=== PATIENT | female | born 1975 | race Two or more races ===

== ENCOUNTER → 2017-12-04 11:03 | Outpatient (CLI) | payer OTHER, SELFPAY ==
[2017-12-04 11:23] LABS: Basophils % 0.2 % (0.1-2.0); Eosinophils # 0.1 K/mm3 (0.0-0.4); Eosinophils % 1.4 % (0.1-12.0); Hematocrit 41.8 % (37.0-47.0); Hemoglobin 13.5 g/dL (12.2-16.2); Lymphocytes # 1.5 K/mm3 (0.7-4.5); Lymphocytes % 20.1 K/mm3 (10-50); Mean Corpuscular HGB Conc 32.3 g/dL (31.8-35.4); Mean Corpuscular Hemoglobin 26.3 pg (27.0-31.2); Mean Corpuscular Volume 81.3 fl (81-99); Mean Platelet Volume 10.5 fl (7.4-10.4); Monocytes # 0.3 K/mm3 (0.1-1.0); Monocytes % 4.6 % (1.7-9.3); Neutrophils # 5.5 K/mm3 (1.8-7.8); Neutrophils % 73.7 % (37.0-80.0); Platelet Count 224 K/mm3 (142-424); Red Blood Count 5.14 M/mm3 (4.20-5.40); Red Cell Distribution Width 14.3 % (11.5-17.5); White Blood Count 7.4 K/mm3 (4.8-10.8)
[2017-12-04 11:40] LABS: Alanine Aminotransferase 95 U/L (12-78); Albumin Level 3.9 gm/dL (3.4-5.0); Albumin/Globulin Ratio 0.9 (1.1-1.8); Alkaline Phosphatase 139 U/L (46-116); Anion Gap 10.2 mEq/L (5-15); Aspartate Amino Transferase 79 U/L (15-37); Bilirubin,Total 0.5 mg/dL (0.2-1.0); Blood Urea Nitrogen 8 mg/dL (7-18); Calcium 8.8 mg/dL (8.5-10.1); Carbon Dioxide 28 mmol/L (21.0-32.0); Chloride 99 mmol/L (98-107); Estimated Glomerular Filt Rate 92 ml/min (>60); GFR (African American) 111 ML/MIN (>60); Globulin 4.4 gm/dl (1.3-3.2); Glucose 238 mg/dL (74-106); Potassium 4.2 mmoL/L (3.5-5.1); Sodium 133 mmol/L (136-145); Thyroid Stimulating Hormone 1.91 uIU/ml (0.358-3.740); Total Protein,Serum 8.3 gm/dL (6.4-8.2)
[2017-12-04 14:38] LABS: Hemoglobin A1C 8.5 % (0.0-7.0)
[2017-12-05 15:48] LABS: Vitamin B12 1007 pg/mL (232-1245); Vitamin D 25 Hydroxy 13.6 ng/mL (30.0-100.0)
== END ==
PROVIDERS: Visit Provider Nurse Practitioner Family
DX: R73.9 Hyperglycemia, unspecified (principal); R53.83 Other fatigue
CPT/HCPCS: 36415; 80053; 82607; 82652; 83036; 84443; 85025

== ENCOUNTER → 2017-12-25 09:59 | Outpatient (POV) | payer OTHER, SELFPAY | PROVIDERS: Family Provider Internal Medicine Adolescent Medicine; PCP Internal Medicine Adolescent Medicine; Visit Provider Otolaryngology | DX: Z00.00 Encounter for general adult medical examination without abnormal findings (principal) ==

== ENCOUNTER → 2020-01-28 07:59 | Outpatient (CLI) | payer BC, SELFPAY ==
--- NOTE | 2020-01-28 08:07 | US_ITS ---
PROCEDURE: US LIVER CLINICAL INDICATION: URINE DISCOLORATION,PANCYLOPENIA, COMPARISON: LIVER US LIVER (ABD LTD) from 01/25/2017 FINDINGS: PANCREAS: The body and head of the pancreas have an unremarkable sonographic appearance. The tail the pancreas is not well demonstrated and may be better evaluated with CT. LIVER: No focal liver lesions demonstrated. Homogeneous echogenicity. No intrahepatic biliary ductal dilatation evident. There is appropriate direction of blood flow within a non dilated portal vein RIGHT KIDNEY: No hydronephrosis. There is a focal area of increased echogenicity in the lower pole of the right kidney. No shadowing apparent. This could be due to an angio myelolipoma and may be confirmed with CT without contrast. GALLBLADDER: No gallstones, gallbladder wall thickening, pericholecystic fluid, or biliary dilatation. IMPRESSION: 1. No gallstones. Unremarkable appearing liver. 2. Hyperechoic focus in the lower pole of the right kidney which could be due to an angio myelolipoma and may be confirmed with unenhanced CT of the kidneys. Dictated by: Tim Guevara MD 01/28/2020 11:33 Electronically signed by Tim Guevara MD in [place] 01/28/2020 11:33
== END ==
PROVIDERS: PCP Internal Medicine Adolescent Medicine; Visit Provider Internal Medicine Adolescent Medicine
DX: R39.89 Other symptoms and signs involving the genitourinary system (principal); E66.01 Morbid (severe) obesity due to excess calories; D61.818 Other pancytopenia
CPT/HCPCS: 76705

== ENCOUNTER → 2021-05-24 19:38 | Outpatient (CLI) | payer BC, SELFPAY | PROVIDERS: Visit Provider Nurse Practitioner Family | DX: Z20.822 Contact with and (suspected) exposure to COVID-19 (principal) | CPT/HCPCS: C9803; U0003; U0005 ==

== ENCOUNTER 2021-07-17 00:36 | Emergency (ER) | payer BC, SELFPAY ==
[2021-07-17 00:37] VITALS: BP 132/55; PULSE 88; RESP 16; TEMP 36.4; O2SAT 99; BMI 46.8
[2021-07-17 00:55] VITALS: BMI 46.8
--- NOTE | 2021-07-17 00:56 | CT_ITS ---
PROCEDURE INFORMATION: Exam: CT Abdomen And Pelvis With Contrast Exam date and time: 07/17/2021 12:56 AM Age: 45 years old Clinical indication: Abdominal tenderness; Additional info: Llq pain TECHNIQUE: Imaging protocol: Computed tomography of the abdomen and pelvis with contrast. Radiation optimization: All CT scans at this facility use at least one of these dose optimization techniques: automated exposure control; mA and/or kV adjustment per patient size (includes targeted exams where dose is matched to clinical indication); or iterative reconstruction. Contrast material: ISOVUE; Contrast volume: 75 ml; Contrast route: IV; COMPARISON: LIVER US LIVER (ABD LTD) 01/25/2017 9:20 AM FINDINGS: Lungs: No mass/infiltrate at either lung base. No pleural effusion. Liver: The liver is normal in size and attenuation. No intrahepatic biliary dilitation. Gallbladder and bile ducts: Normal. No calcified stones. No ductal dilation. Gallbladder wall thickness is normal. Pancreas: Normal. No ductal dilation. Spleen: Normal. No splenomegaly. Benign internal granulomatous calcifications noted. Adrenal glands: Normal. No mass. Kidneys and ureters: Normal. No hydronephrosis. Stomach and bowel: There is diverticulosis of the colon. No obstruction. No mucosal thickening. Small bowel mesentery is normal. Appendix: Unremarkable. Intraperitoneal space: Unremarkable. No free air. No significant fluid collection. Vasculature: Unremarkable. No abdominal aortic aneurysm. There are calcified phleboliths within the pelvis. Lymph nodes: Unremarkable. No enlarged lymph nodes. Urinary bladder: Unremarkable as visualized. Reproductive: Unremarkable as visualized. Bones/joints: Unremarkable. No acute fracture. Soft tissues: There is a moderate umbilical hernia which contains fat of the greater omentum. IMPRESSION: 1. There is a moderate umbilical hernia which contains fat of the greater omentum. 2. No evidence of acute process within the abdomen or pelvis.
[2021-07-17 01:00] VITALS: BP 114/66; PULSE 97; RESP 16; TEMP 36.6; O2SAT 98
[2021-07-17 01:04] LABS: Basophils # 0.1 K/mm3 (0-0.2); Basophils % 0.8 % (0.1-2.0); Eosinophils # 0.1 K/mm3 (0.0-0.4); Eosinophils % 1.2 % (0.1-12.0); Hematocrit 36.3 % (37.0-47.0); Hemoglobin 11.3 g/dL (12.2-16.2); Lymphocytes # 2.8 K/mm3 (0.7-4.5); Mean Corpuscular HGB Conc 31.2 g/dL (31.8-35.4); Mean Corpuscular Hemoglobin 24.3 pg (27.0-31.2); Mean Corpuscular Volume 77.9 fl (81-99); Mean Platelet Volume 9.1 fl (7.4-10.4); Monocytes # 0.5 K/mm3 (0.1-1.0); Monocytes % 4.5 % (1.7-9.3); Neutrophils # 7.2 K/mm3 (1.8-7.8); Neutrophils % 67.6 % (37.0-80.0); Platelet Count 136 K/mm3 (142-424); Red Blood Count 4.66 M/mm3 (4.20-5.40); Red Cell Distribution Width 16.2 % (11.5-17.5); White Blood Count 10.7 K/mm3 (4.8-10.8)
[2021-07-17 01:06] LABS: Lipase 128 U/L (23-300)
[2021-07-17 01:11] LABS: Appearance,Urine CLEAR (Clear); Bilirubin,Urine Negative (Negative); Blood, Urine Negative (Negative); Color,Urine YELLOW (Yellow); Glucose,Urine (UA) Negative (Negative); Ketones,Urine Negative (Negative); Leukocyte Esterase,Urine Negative (Negative); Nitrate,Urine Negative (Negative); Protein,Urine Negative (Negative); Specific Gravity, Urine <= 1.005 (1.005-1.030); Urobilinogen,Urine 0.2 EU/dl (0.2)
[2021-07-17 01:16] LABS: Alanine Aminotransferase 66 U/L (12-78); Albumin Level 4.1 g/dl (3.5-5.0); Albumin/Globulin Ratio 1.2 (1.1-1.8); Alkaline Phosphatase 170 U/L (38-126); Aspartate Amino Transferase 80 U/L (14-36); Bilirubin,Total 0.2 mg/dl (0.2-1.3); Blood Urea Nitrogen 7 mg/dl (7-17); Calcium 8.5 mg/dl (8.4-10.2); Carbon Dioxide 24 mmol/L (22.0-30.0); Chloride 100 mmol/L (98-107); Creatinine Clearance Estimated 102 mL/min (50-200); Estimated Glomerular Filt Rate 133 ml/min (>60); GFR (African American) 161 ML/MIN (>60); Globulin 3.3 g/dL (1.3-3.2); Glucose 79 mg/dl (74-100); Sodium 136 mmol/L (136-145); Total Protein,Serum 7.4 g/dl (6.3-8.2)
--- NOTE | 2021-07-17 01:16 | HMH.EDNVD ---
ED Disposition Clinical Impression: Abdominal pain Qualifiers: Abdominal location: right upper quadrant Qualified Code(s): R10.11 - Right upper quadrant pain Disposition: Home, Self-Care Condition on Discharge: Good Instructions: DI for Nausea -- Adult Additional Instructions: see pcp for follow up Referrals: Ethan Mercado MD [Primary Care Provider] - - Critical Care Critical Care Time: No Attestation: On 07/17/21, the high probability of a clinically significant, sudden or life threatening deterioration of the following system(s) required my full and direct attention, intervention and personal management. The time I documented below is in addition to time spent performing reported procedures but includes the following listed in this critical care notation. Medical Decision Making - Medical Records Medical records reviewed: Yes: I reviewed the patient's medical records. - Matthew Inquiry Pt receiving controlled substance: No Vital Signs: 07/17/21 00:37 07/17/21 01:00 EST Temperature 97.6 F 97.8 F Temperature Source Oral Oral Pulse Rate 97 H Pulse Rate [Left] 88 Respiratory Rate 16 16 Blood Pressure 114/66 Blood Pressure [Right Arm] 132/55 L Blood Pressure Mean [Right Arm] 80 02 Sat by Pulse Oximetry 99 98 Oxygen Delivery Method Room Air - Lab Data Lab results reviewed: Yes: I reviewed the patient's lab results. Lab Results 07/17/21 00:56: Urine Color Yellow, Urine Appearance Clear, Urine pH 7.0, Ur Specific [place] <= 1.005, Urine Protein Negative, Urine Glucose (UA) Negative, Urine Ketones Negative, Urine Blood Negative, Urine Nitrate Negative, Urine Bilirubin Negative, Urine Urobilinogen 0.2, Ur Leukocyte Esterase Negative, Urine WBC Occasional, Ur Squamous Epith Cells 5-10 07/17/21 00:56: Lipase 128 07/17/21 00:58: WBC 10.7, RBC 4.66, Hgb 11.3 L, Hct 36.3 L, MCV 77.9 L, MCH 24.3 L, MCHC 31.2 L, RDW 16.2, Plt Count 136 L, MPV 9.1, Neut % (Auto) 67.6, Lymph % (Auto) 26.0, [place] % (Auto) 4.5, Eos % (Auto) 1.2, Baso % (Auto) 0.8, Neut # (Auto) 7.2, Lymph # (Auto) 2.8, [place] # (Auto) 0.5, Eos # (Auto) 0.1, Baso # (Auto) 0.1, ESR 49 H 07/17/21 00:58: Sodium 136, Potassium 3.0 L, Chloride 100, Carbon Dioxide 24, Anion Gap 15.0, BUN 7, Creatinine 0.50 L, Estimated Creat Clear 102, Estimated GFR 133, Est GFR ( Amer) 161, Glucose 79, Calcium 8.5, Total Bilirubin 0.2, AST 80 H, ALT 66, Alkaline Phosphatase 170 H, C-Reactive Protein 21.5 H, Total Protein 7.4, Albumin 4.1, Globulin 3.3 H, Albumin/Globulin Ratio 1.2, Procalcitonin 0.068 07/17/21 00:58: Serum HCG, Qual Negative Result diagrams: 07/17/21 00:58 07/17/21 00:58 Orders (Tests/Meds): ED MEDICATIONS Generic Name Dose Route Start Last Admin Trade Name Freq PRN Reason Stop Dose Admin Sodium Chloride 1,000 mls @ 999 mls/hr 07/17/21 01:00 EST 07/17/21 01:04 EST Sod Chlor 0.9% 1000ml Bag IV 07/17/21 02:00 999 mls/hr .[id number] CAROL Administration Discontinued Medications Generic Name Dose Route Start Last Admin Trade Name Freq PRN Reason Stop Dose Admin Iopamidol 75 ml 07/17/21 01:49 EST 07/17/21 01:50 EDT Iopamidol-370 (76%);100ml Bottle IV 07/17/21 01:50 EST 75 ml ONCE ONE Administration Ketorolac Tromethamine 30 mg 07/17/21 00:57 07/17/21 01:05 EDT Ketorolac 30mg/Ml Vial IV 07/17/21 00:58 30 mg ONCE ONE Administration Ondansetron HCl 4 mg 07/17/21 00:57 07/17/21 01:05 EDT Ondansetron 4mg/2ml Vial IV 07/17/21 00:58 4 mg ONCE ONE Administration Sodium Chloride 10 ml 07/17/21 01:49 EST 07/17/21 01:50 EDT Sodium Chloride 0.9% 10ml Syr (Rad Only) IV 07/17/21 01:50 EST 10 ml ONCE ONE Administration ORDERS Category Date Time Status Rapid PCR Covid and Flu A/B Stat Lab 07/17/21 00:15 Received - CT Data CT Scan: Abdomen, Pelvis Time Received: 01:[address] Reviewed: Yes: I have viewed the radiologist's interpretation Preliminary Findings: Abnormal (see report ) Medical
[2021-07-17 01:17] LABS: HCG Qualitative, Serum Negative (Negative)
[2021-07-17 01:21] LABS: C-Reactive Protein 21.5 mg/L (0-4)
[2021-07-17 01:23] LABS: Microscopic, Urine URINE MICROSCOPIC (MICROSCOPIC); WBC,Urine Occasional #/hpf (0-3)
[2021-07-17 01:28] LABS: Erythrocyte Sedimentation Rate 49 mm/hr (0-20)
[2021-07-17 01:35] LABS: Procalcitonin 0.068 ng/mL (0.0-2.0)
[2021-07-17 01:50] VITALS: BP 110/58; PULSE 71; RESP 18; TEMP 36.9; O2SAT 96
[2021-07-17 02:01] LABS: Coronavirus 19, PCR Not Detected (NotDetected); Influenza A, PCR Not Detected (NotDetected); Influenza B, PCR Not Detected (NotDetected)
== END 2021-07-17 01:55 | disposition home or self-care (01) ==
PROVIDERS: Emergency Provider Emergency Medicine; PCP Internal Medicine Adolescent Medicine
DX: R10.11 Right upper quadrant pain (principal); R11.2 Nausea with vomiting, unspecified; Z20.822 Contact with and (suspected) exposure to COVID-19
CPT/HCPCS: 74177; 80053; 81001; 83690; 84145; 84703; 85025; 85651; 86140; 96365; 96375; 99283; C9803; J2405; Q9967; U0003; U0005

== ENCOUNTER → 2021-07-21 09:38 | Outpatient (CLI) | payer BC, SELFPAY ==
--- NOTE | 2021-07-21 09:40 | US_ITS ---
PROCEDURE: US GALLBLADDER CLINICAL INDICATION: RUQ PAIN COMPARISON: CT CT ABDOMEN PELVIS W CON from 07/17/2021 FINDINGS: Pancreas: Unremarkable/Not well seen Liver: Unremarkable. There is appropriate direction of blood flow within a non dilated portal vein. Right kidney: There is a small hyperechoic focus involving the right renal cortex lower pole at approximately 13 mm. This is of uncertain clinical significance. Review of the CT scan did not demonstrate any angio myelolipoma is which may cause a hyperechoic lesion possibly related to artifact from an area of septation of the kidney with invaginated fat. Follow-up suggested to confirm stability. Gallbladder: No stones are evident. There is no gallbladder wall thickening. Common duct is normal in diameter. IMPRESSION: No acute finding. Small hyperechoic area in the lower pole of the right kidney possibly related to artifact. Recommend six-month sonographic follow-up to confirm stability Dictated by: Tim Guevara MD 07/21/2021 15:36 Tim Guevara MD in [place] 07/21/2021 15:36
== END ==
PROVIDERS: PCP Internal Medicine Adolescent Medicine; Visit Provider Nurse Practitioner Family
DX: R10.11 Right upper quadrant pain (principal)
CPT/HCPCS: 76705

== ENCOUNTER → 2022-05-13 09:44 | Outpatient (CLI) | payer OTHER, SELFPAY ==
[2022-05-13 10:09] LABS: Basophils % 0.5 % (0.1-2.0); Eosinophils # 0.1 K/mm3 (0.0-0.4); Eosinophils % 1.3 % (0.1-12.0); Hematocrit 37.3 % (37.0-47.0); Hemoglobin 11.7 g/dL (12.2-16.2); Lymphocytes # 1.5 K/mm3 (0.7-4.5); Lymphocytes % 25.7 % (10-50); Mean Corpuscular HGB Conc 31.5 g/dL (31.8-35.4); Mean Corpuscular Hemoglobin 24.7 pg (27.0-31.2); Mean Corpuscular Volume 78.6 fl (81-99); Monocytes # 0.2 K/mm3 (0.1-1.0); Monocytes % 4.2 % (1.7-9.3); Neutrophils # 3.9 K/mm3 (1.8-7.8); Neutrophils % 68.3 % (37.0-80.0); Platelet Count 165 K/mm3 (142-424); Red Blood Count 4.74 M/mm3 (4.20-5.40); Red Cell Distribution Width 15.7 % (11.5-17.5); White Blood Count 5.8 K/mm3 (4.8-10.8)
[2022-05-13 10:45] LABS: Alanine Aminotransferase 77 U/L (12-78); Albumin Level 3.7 g/dl (3.5-5.0); Albumin/Globulin Ratio 1.2 (1.1-1.8); Alkaline Phosphatase 206 U/L (38-126); Anion Gap 9.9 mEq/L (5-15); Aspartate Amino Transferase 101 U/L (14-36); Blood Urea Nitrogen 13 mg/dl (7-17); Calcium 8.8 mg/dl (8.4-10.2); Carbon Dioxide 26 mmol/L (22.0-30.0); Chloride 106 mmol/L (98-107); Estimated Glomerular Filt Rate 108 ml/min (>60); GFR (African American) 130 ML/MIN (>60); Globulin 3.1 g/dL (1.3-3.2); Glucose 119 mg/dl (74-100); Potassium 4.9 mmoL/L (3.5-5.1); Sodium 137 mmol/L (136-145); Total Protein,Serum 6.8 g/dl (6.3-8.2)
[2022-05-13 10:47] LABS: Bilirubin,Total < 0.1 mg/dl (0.2-1.3)
[2022-05-13 11:13] LABS: Hemoglobin A1C 7.9 % (4.0-6.0)
[2022-05-13 11:17] LABS: Thyroid Stimulating Hormone 1.15 uIU/mL (0.465-4.68)
== END ==
PROVIDERS: PCP Internal Medicine Adolescent Medicine; Visit Provider Internal Medicine Adolescent Medicine
DX: E11.9 Type 2 diabetes mellitus without complications (principal); E03.9 Hypothyroidism, unspecified
CPT/HCPCS: 36415; 80053; 83036; 84443; 85025

== ENCOUNTER 2022-07-14 21:54 | Emergency (ER) | payer OTHER, SELFPAY ==
[2022-07-14 21:54] VITALS: BP 129/77; PULSE 78; RESP 19; TEMP 36.7; O2SAT 98; BMI 37.8
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
[2022-07-14 23:44] VITALS: BP 137/68; PULSE 79; O2SAT 99
[2022-07-15 00:01] VITALS: BP 134/79; PULSE 79; O2SAT 98
--- NOTE | 2022-07-15 00:22 | PC.NURSE ---
pt requested something for the pain . notified
[2022-07-15 00:30] VITALS: BP 133/82; PULSE 74; O2SAT 97
--- NOTE | 2022-07-15 01:10 | HMH.EDGENADL ---
Discharge Plan Disposition Patient Disposition: Home, Self-Care Condition: Good Chief Complaint: Headache Prescriptions Prescriptions: No Action meloxicam 15 mg tablet 15 mg PO DAILY Label Comments: TAKE 1 TABLET BY MOUTH ONCE DAILY levothyroxine 50 mcg tablet 50 mcg PO DAILY Label Comments: TAKE 1 TABLET BY MOUTH ONCE DAILY trazodone 150 mg tablet 150 mg PO HS Label Comments: TAKE 1 TABLET BY MOUTH ONCE DAILY AT BEDTIME metformin 1,000 mg tablet 1,000 mg PO BID Label Comments: TAKE 1 TABLET BY MOUTH TWICE DAILY lisinopril 10 mg tablet 10 mg PO DAILY Label Comments: TAKE 1 TABLET BY MOUTH ONCE DAILY omeprazole 20 mg capsule,delayed release(DR/EC) 20 mg PO DAILY Label Comments: TAKE 1 CAPSULE BY MOUTH ONCE DAILY norethindrone ac-eth estradiol [Microgestin 09/29 ()] 1-20 mg-mcg tablet 1 tab PO DAILY Label Comments: TAKE 1 TABLET BY MOUTH ONCE DAILY propranolol 20 mg tablet 20 mg PO BID Label Comments: TAKE 1 TABLET BY MOUTH TWICE DAILY ferrous gluconate 324 mg (37.5 mg iron) tablet 324 mg PO DAILY Label Comments: TAKE 1 TABLET BY MOUTH ONCE DAILY Jardiance 25 mg tablet 25 mg PO DAILY Label Comments: TAKE 1 TABLET BY MOUTH ONCE DAILY IN THE MORNING Soliqua 100/33 100 unit-33 mcg/mL insulin pen 60 unit SQ HS Label Comments: INJECT 60 UNITS SUBCUTANEOUSLY IN THE MORNING Referrals Follow up/Referrals: Ethan Mercado MD [Primary Care Provider] - See instructions Activity Restrictions/Add. Instructions Additional Instructions/Restrictions: Home medication as directed. PCP follow-up on Sunday. Return to the emergency department for worsening Clinical Impressions Clinical Impression: Headache Instructions Patient Instructions: DI for Headache Discharge ED Provider: Jamie Fregoso General Adult [facility] General Chief complaint: Headache Stated complaint: severe h/a Time Seen by Provider: 07/14/22 23:17 Mode of Arrival: Family Vehicle Source of Information: Patient Limitations: No Limitations Description of Symptoms (Recalled from ER Triage Doc. by RN): Pt c/o R sided headache that has been present for at least 3 days. She was seen at her PCP office today and they prescribed her a nasal spray and stated she had congestion back there but pt denies sinus or chest congestion. Pt also report dizziness, nausea, and chills. She is unable to take Tylenol d/t fatty liver dz, but has been taking advil, ibuprofen, and sinus pressure OTC meds withuot relief. She also reported her BP has been elevated. History of Present Illness HPI narrative: 46yo F presents to the emergency department for 3 days of headache. Pain is right-sided. Reports a history of migraines. Complains of pain in her right ear, right jaw. Reports blurry vision. States she did not take her migraine medicine because she does not believe it is a migraine. Has been taking ibuprofen and and Aleve. Related Data Home Medications Medication Instructions Recorded Confirmed empagliflozin 25 mg tablet 25 mg PO DAILY Diabetes 07/14/22 07/14/22 (Jardiance) ferrous gluconate 324 mg (37.5 mg 324 mg PO DAILY Supplement 07/14/22 07/14/22 iron) tablet insulin glargine 100 60 unit SQ HS Diabetes 07/14/22 07/14/22 unit-lixisenatide 33 mcg/mL subcutaneous pen (Soliqua 100/33) levothyroxine 50 mcg tablet 50 mcg PO DAILY thyroid 07/14/22 07/14/22 lisinopril 10 mg tablet 10 mg PO DAILY High blood pressure 07/14/22 07/14/22 meloxicam 15 mg tablet 15 mg PO DAILY artritis 07/14/22 07/14/22 metformin 1,000 mg tablet 1,000 mg PO BID Diabetes 07/14/22 07/14/22 norethindrone acetate 1 mg-ethinyl 1 tab PO DAILY Supplement 07/14/22 07/14/22 estradiol 20 mcg tablet (Microgestin) omeprazole 20 mg capsule,delayed 20 mg PO DAILY GERD 07/14/22 07/14/22 release propranolol 20 mg tablet 20 mg PO BID High blood pressure
[2022-07-15 01:15] VITALS: BP 133/82; PULSE 77; RESP 16; TEMP 36.7; O2SAT 97
== END 2022-07-15 01:19 | disposition home or self-care (01) ==
PROVIDERS: Emergency Provider Family Medicine; PCP Internal Medicine Adolescent Medicine
DX: R51.9 Headache, unspecified (principal); Z79.84 Long term (current) use of oral hypoglycemic drugs; Z79.4 Long term (current) use of insulin; Z79.899 Other long term (current) drug therapy
CPT/HCPCS: 70450; 96372; 99284

== ENCOUNTER → 2022-12-22 10:14 | Outpatient (CLI) | payer OTHER, SELFPAY ==
--- NOTE | 2022-12-22 10:30 | US_ITS ---
FINAL REPORT CLINICAL HISTORY: PAIN RUQ COMPARISON: CT dated 07/17/2021 FINDINGS: RIGHT UPPER QUADRANT ULTRASOUND Sonographic images of the right upper quadrant were obtained. The pancreas is partially obscured.The liver has an unremarkable appearance.The gallbladder appears normal without evidence of gallstones.The common duct is normal measuring 3 mm. There is a 12 mm echogenic focus in the lower pole of the right kidney, may represent angiomyolipoma. IMPRESSION: Focus in the right kidney which may represent angiomyolipoma. If indicated, renal mass protocol CT may be helpful. Reviewed, Interpreted and Dictated by Roshan Blanchard III, MD Transcribed by Abbey Ramos Authenticated and [facility]
== END ==
PROVIDERS: PCP Internal Medicine Adolescent Medicine; Visit Provider Nurse Practitioner Family
DX: R10.11 Right upper quadrant pain (principal)
CPT/HCPCS: 76705

== ENCOUNTER → 2023-02-23 08:01 | Outpatient (CLI) | payer OTHER, SELFPAY ==
--- NOTE | 2023-02-23 08:18 | CT_ITS ---
FINAL REPORT TECHNIQUE: Pre and post contrast images of the abdomen were obtained. IV and oral contrast was administered. Coronal reformatted images were also obtained and reviewed.This study was performed with techniques to keep radiation doses as low as reasonably achievable (ALARA). Individualized dose reduction techniques using automated exposure control or adjustment of mA and/or kV according to the patient's size were employed. CLINICAL HISTORY: RENAL CYST COMPARISON: 07/17/2021 FINDINGS: Abdomen: The lung bases are clear. The heart is normal in size. The liver has an unremarkable appearance, without evidence of mass or biliary ductal dilatation. The spleen is unremarkable. No adrenal mass is present. The pancreas has an unremarkable appearance. There is an 8 mm mass in the mid right kidney with mean attenuation value of -44 Hounsfield units on the noncontrast images. There is no evidence of contrast enhancement. Imaging characteristics are consistent with a small angiomyolipoma. No other renal mass identified. There is no hydronephrosis or renal stone identified. The aorta is normal in caliber. There is no free fluid or adenopathy. The appendix is normal. There is an umbilical hernia containing fat. Diverticulum is noted in the descending colon. IMPRESSION: 8 mm mass mid right kidney consistent with small angiomyolipoma. Reviewed, Interpreted and Dictated by Roshan Blanchard III, MD Transcribed by Joann Mullen Authenticated and [facility]
[2023-02-23 08:49] LABS: Blood Urea Nitrogen 9 mg/dl (7-17); Estimated Glomerular Filt Rate 107 ml/min (>60); GFR (African American) 130 ML/MIN (>60)
[2023-02-23 11:13] LABS: Microscopic, Urine URINE MICROSCOPIC (MICROSCOPIC)
[2023-02-23 13:06] LABS: Appearance,Urine CLEAR (Clear); Bilirubin,Urine Negative (Negative); Blood, Urine Negative (Negative); Color,Urine YELLOW (Yellow); Glucose,Urine (UA) 1+ (Negative); Ketones,Urine Negative (Negative); Leukocyte Esterase,Urine 1+ (Negative); Nitrate,Urine Negative (Negative); PH,Urine 6.5 (5.0-8.5); Protein,Urine Negative (Negative); Urobilinogen,Urine 0.2 EU/dl (0.2)
[2023-02-23 13:13] LABS: Bacteria,Urine Trace /lpf; RBC,Urine Occasional #/hpf (0-3)
== END ==
PROVIDERS: Physician Assistant; PCP Internal Medicine Adolescent Medicine; Visit Provider Nurse Practitioner Family
DX: N28.1 Cyst of kidney, acquired (principal)
CPT/HCPCS: 36415; 74170; 81001; 82565; 84520; 87086; Q9967

== ENCOUNTER 2023-03-08 17:58 | Emergency (ER) | payer OTHER, SELFPAY ==
[2023-03-08 18:00] VITALS: BP 129/74; PULSE 92; RESP 17; TEMP 36.9; O2SAT 97; BMI 41.0
[2023-03-08 18:30] VITALS: BP 124/71; PULSE 102; O2SAT 96
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
[2023-03-08 19:30] VITALS: BP 124/73; PULSE 84; RESP 17; TEMP 36.9; O2SAT 98
== END 2023-03-08 19:30 | disposition home or self-care (01) ==
PROVIDERS: Emergency Provider Student in an Organized Health Care Education/Training Program; PCP Internal Medicine Adolescent Medicine
DX: S16.1XXA Strain of muscle, fascia and tendon at neck level, initial encounter (principal); S46.912A Strain of unspecified muscle, fascia and tendon at shoulder and upper arm level, left arm, initial encounter; E11.9 Type 2 diabetes mellitus without complications; K21.9 Gastro-esophageal reflux disease without esophagitis; I10 Essential (primary) hypertension; E03.9 Hypothyroidism, unspecified; V43.52XA Car driver injured in collision with other type car in traffic accident, initial encounter
CPT/HCPCS: 71045; 72125; 73030; 73562; 99285

== ENCOUNTER 2023-06-04 17:05 | Emergency (ER) | payer OTHER, SELFPAY ==
[2023-06-04 17:50] VITALS: BP 149/85; PULSE 102; RESP 20; TEMP 36.7; O2SAT 100; BMI 31.4
--- NOTE | 2023-06-04 18:04 | EXP.UTC ---
Discharge Plan Disposition Patient Disposition: Home, Self-Care Condition: Good Prescriptions Prescriptions: New amoxicillin-pot clavulanate 875-125 mg Tablet 1 tab PO Q12H Qty: 20 0RF No Action meloxicam 15 mg tablet 15 mg PO DAILY Patient Comments: TAKE 1 TABLET BY MOUTH ONCE DAILY levothyroxine 50 mcg tablet 50 mcg PO DAILY Patient Comments: TAKE 1 TABLET BY MOUTH ONCE DAILY trazodone 150 mg tablet 150 mg PO HS Patient Comments: TAKE 1 TABLET BY MOUTH ONCE DAILY AT BEDTIME metformin 1,000 mg tablet 1,000 mg PO BID Patient Comments: TAKE 1 TABLET BY MOUTH TWICE DAILY lisinopril 10 mg tablet 10 mg PO DAILY Patient Comments: TAKE 1 TABLET BY MOUTH ONCE DAILY omeprazole 20 mg capsule,delayed release(DR/EC) 20 mg PO DAILY Patient Comments: TAKE 1 CAPSULE BY MOUTH ONCE DAILY norethindrone ac-eth estradiol [Microgestin 09/29 ()] 1-20 mg-mcg tablet 1 tab PO DAILY Patient Comments: TAKE 1 TABLET BY MOUTH ONCE DAILY propranolol 20 mg tablet 20 mg PO BID Patient Comments: TAKE 1 TABLET BY MOUTH TWICE DAILY ferrous gluconate 324 mg (37.5 mg iron) tablet 324 mg PO DAILY Patient Comments: TAKE 1 TABLET BY MOUTH ONCE DAILY Jardiance 25 mg tablet 25 mg PO DAILY Patient Comments: TAKE 1 TABLET BY MOUTH ONCE DAILY IN THE MORNING cyclobenzaprine 10 mg tablet 10 mg PO DAILYP PRN (Reason: Muscle Pain) Tradjenta 5 mg tablet 5 mg PO DAILY Ozempic 1 mg/dose (4 mg/3 mL) pen injector 1 mg SQ WEEKLY Patient Comments: INJECT 1 MG UNDER THE SKIN ONCE A WEEK ibuprofen 800 mg tablet 800 mg PO TID PRN (Reason: pain) 7 Days Qty: 20 0RF cyclobenzaprine 5 mg tablet 5 mg PO TID PRN (Reason: muscle spasm) 5 Days Qty: 15 0RF Referrals Follow up/Referrals: Ethan Mercado MD [Primary Care Provider] - See instructions Activity Restrictions/Add. Instructions Additional Instructions/Restrictions: Over the counter Motrin and/or Tylenol for pain Take antibiotic as prescribed Call and make appoitment with Dentist may take you several weeks to get in Rinse mouth with Warm salt water Use dental balls as prescribed Clinical Impressions Clinical Impression: Abscess, dental Instructions Patient Instructions: Tooth Abscess, Amoxicillin and Clavulanic Acid Discharge ED Provider: Yeimy Rodas [facility] HPI General Stated complaint: dENTAL PAIN Mode of Arrival: Ambulatory Source of Information: Patient Limitations: No Limitations Time Seen by Provider: 06/04/23 18:04 Description of Symptoms (Recalled from Triage Doc. by RN): PATIENT C/O PAIN TO RIGHT BOTTOM TOOTH SINCE SUNDAY NIGHT HEENT Symptoms (Recalled from RN notes): Yes Resp Symptoms (Recalled from RN notes): No Skin Symptoms (Recalled from RN notes): No MS Symptoms (Recalled from RN notes): No Functional Status (Recalled from RN notes): WNL History of Present Illness Provider Complaint: Patient states that she started having pain in her bottom back tooth on the right on Sunday and for the last couple of days has been having pain and swelling in her right lower jaw area and she is worried she may have an abscessed tooth Related Data Home Medications Medication Instructions Recorded Confirmed empagliflozin 25 mg tablet 25 mg PO DAILY Diabetes 07/14/22 03/08/23 (Jardiance) ferrous gluconate 324 mg (37.5 mg 324 mg PO DAILY Supplement 07/14/22 03/08/23 iron) tablet levothyroxine 50 mcg tablet 50 mcg PO DAILY Thyroid 07/14/22 03/08/23 lisinopril 10 mg tablet 10 mg PO DAILY High Blood Pressure 07/14/22 03/08/23 meloxicam 15 mg tablet 15 mg PO DAILY Arthritis 07/14/22 03/08/23 metformin 1,000 mg tablet 1,000 mg PO BID Diabetes 07/14/22 03/08/23 norethindrone acetate 1 mg-ethinyl 1 tab PO DAILY Contraception 07/14/22 03/08/23 estradiol 20 mcg tablet (Microgestin) omeprazole 20 mg capsule,delayed 20 mg PO D
[2023-06-04 18:20] VITALS: BP 149/85; PULSE 102; RESP 20; TEMP 36.7; O2SAT 100
== END 2023-06-04 18:24 | disposition home or self-care (01) ==
PROVIDERS: Emergency Provider Nurse Practitioner; PCP Internal Medicine Adolescent Medicine
DX: K04.7 Periapical abscess without sinus (principal); E11.9 Type 2 diabetes mellitus without complications; K21.9 Gastro-esophageal reflux disease without esophagitis; I10 Essential (primary) hypertension; E03.9 Hypothyroidism, unspecified; Z79.84 Long term (current) use of oral hypoglycemic drugs
CPT/HCPCS: 99204; 99212; G0463

== ENCOUNTER → 2023-08-31 07:32 | Outpatient (CLI) | payer OTHER, SELFPAY ==
--- OUTSIDE RECORDS SUMMARY | 2023-08-31 07:38 | XMS_ITS | Clinical Summary ---
Author Name Unknown Address [address] [place] [address] Phone Organization [facility] Address [address] [place] [address] Phone Care Team Providers Care Ceramic Designer Name Role Phone Roshan Loyd MD [ ] Conditions or Problems Problem Name Problem Code Onset Date Status Entry Date Provider Comment Standard Description Annotate Elevated transaminases 729539150 (SNOMED CT) 01/17 Active 01/17 Michelle L Elevated level of transaminase and lactic acid dehydrogenase Abscess, vulva 79469373 (SNOMED CT) 01/17 Active 01/17 Michelle L Abscess of vulva MRSA infection 244076826 (SNOMED CT) 01/17 Active 01/17 Michelle L Methicillin resistant Staphylococcus aureus infection Neutrophilic leukemoid reaction D72.823 (ICD-10-CM ) 01/17 Active 01/17 Michelle L Leukemoid reaction Morbid obesity due to excess calories E66.01 (ICD-10-CM ) 01/17 Active 01/17 Michelle L Morbid (severe) obesity due to excess calories DM Type II 47414998 (SNOMED CT) 01/17 Active 01/17 Michelle L Type 2 diabetes mellitus Benign Essential Hypertension 7478975 (SNOMED CT) 01/17 Active 01/17 Michelle L Benign essential hypertension Medications Medication Instructions Start Date Stop Date Generic Name [facility] Provider OMEPRAZOLE 40 MG CPDR 1 cap daily OMEPRAZOLE [id number] Kayla Simeon METFORMIN HCL ER (OSM) 1000 MG [id number] 1 tab, twice daily with meals METFORMIN HCL 43995093655 Kayla Simeon LISINOPRIL 5 MG TABS 1 tab daily LISINOPRIL 13143293667 Kayla Simeon LEVOTHYROXINE SODIUM 50 MCG TABS 1 tab daily LEVOTHYROXINE SODIUM 25942673873 Kayla Simeon DIAZEPAM 5 MG TABS 1 tab daily DIAZEPAM 28258430142 Kayla Simeon JANUVIA 100 MG TABS 1 tab daily SITAGLIPTIN PHOSPHATE 14307685093 Kayla Simeon LINEZOLID 600 MG TABS 1 tab, twice daily LINEZOLID [id number] Kayla Simeon ACIDOPHILUS CAPS 1 cap daily LACTOBACILLUS CAPS 36268378452 Kayla Simeon HYDROCODONE-ACET AMINOPHEN 5-325 MG TABS 1 tab, every 4 hours, prn HYDROCODONE-ACET AMINOPHEN [id number] Kayla Simeon Medications Administered No information available. 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 Procedures No information available. Vital Signs No information available. Immunizations No information available. Advance Directives No information available.
--- OUTSIDE RECORDS SUMMARY | 2023-08-31 07:38 | XMS_ITS | Patient Health Record ---
Author Name Unknown Organization [facility] Address [address] [place] [address] Care Team Providers Care Registrar Assistant Name Role Phone Natali Farnsworth Unavailable [phone] Andree Carter Unavailable [phone] Allergies No Known Allergies Reason For Referral No Information Medications Medication SIG (Take, Route, Frequency, Duration) Notes Start Date End Date Status traZODone HCl Active Diflucan 150 MG 1 tablet Orally ever y 72 hours for 4 day(s) 11/16/2021 Active Microgestin 09/29 1-20 MG-MCG 1 tablet Orally Once a day for 90 days Active Soliqua Active Lisinopril Active Meloxicam Active metFORMIN HCl ER Act milvia Problems Problem Type SNOMED Code ICD Code Onset Dates Problem Status W/U Status Risk Notes Problem Gynecological examination normal (983861659914839 ) Cervical smear, as part of routine gynecological examination (Z01.419) 09/17/19 Active confirmed Annual without abnormal findings Encounters Encounter Location Date Provider Diagnosis [facility] [address] [place] [address] 09/22/2022 Andree Carter [facility] [address] [place] [address] 11/10/2022 Andree Carter Plan Of Treatment No Information Insurance Providers Payer Name Payer Address Payer Phone Subscriber Number Group Number Insured Name Patient Relationship to Insured Coverage Start Date Coverage End Date [facility] [address] [place] [id number] [place] Aliya Osorio Self - patient is the insured Medical (General) History Medical History History ICD Code Anxiety Bipolar Disease Depression Diabetes Endometriosis Hypothyroidism Weight Disorder Surgical History Surgery Date(Month/Year) Caesarean sections x 3
[2023-08-31 08:09] LABS: Basophils % 0.6 % (0.1-2.0); Eosinophils # 0.1 K/mm3 (0.0-0.4); Eosinophils % 3.4 % (0.1-12.0); Hematocrit 38.9 % (37.0-47.0); Lymphocytes # 1.5 K/mm3 (0.7-4.5); Lymphocytes % 35.4 % (10-50); Mean Corpuscular HGB Conc 33.4 g/dL (31.8-35.4); Mean Corpuscular Hemoglobin 27.4 pg (27.0-31.2); Mean Platelet Volume 10.3 fl (7.4-10.4); Monocytes # 0.2 K/mm3 (0.1-1.0); Monocytes % 5.4 % (1.7-9.3); Neutrophils # 2.3 K/mm3 (1.8-7.8); Neutrophils % 55.2 % (37.0-80.0); Platelet Count 147 K/mm3 (142-424); Red Blood Count 4.75 M/mm3 (4.20-5.40); Red Cell Distribution Width 16.4 % (11.5-17.5); White Blood Count 4.2 K/mm3 (4.8-10.8)
[2023-08-31 08:46] LABS: Chloride 104 mmol/L (98-107)
[2023-08-31 08:47] LABS: Potassium 3.9 mmoL/L (3.5-5.1); Sodium 136 mmol/L (136-145)
[2023-08-31 08:49] LABS: Alanine Aminotransferase 26 U/L (12-78); Albumin Level 3.9 g/dl (3.5-5.0); Albumin/Globulin Ratio 1.4 (1.1-1.8); Alkaline Phosphatase 74 U/L (38-126); Anion Gap 12.9 mEq/L (5-15); Aspartate Amino Transferase 33 U/L (14-36); Bilirubin,Total 0.4 mg/dl (0.2-1.3); Blood Urea Nitrogen 19 mg/dl (7-17); Carbon Dioxide 23 mmol/L (22.0-30.0); Estimated Glomerular Filt Rate 107 ml/min (>60); GFR (African American) 129 ML/MIN (>60); Globulin 2.8 g/dL (1.3-3.2); Total Protein,Serum 6.7 g/dl (6.3-8.2)
[2023-08-31 08:50] LABS: Calcium 7.9 mg/dl (8.4-10.2); Chol/HDL Ratio 3.6 (1-3.5); Cholesterol 135 mg/dl (140-200); Glucose 80 mg/dl (74-100); HDL Cholesterol 37 mg/dl (40-60); Triglycerides 79 mg/dl (30-150); VLDL Cholesterol 16 mg/dL (0-40)
[2023-08-31 08:54] LABS: Creatinine,Urine Random 152 mg/dL (Not Estab.)
[2023-08-31 08:59] LABS: Microalbumin/Creatinine Ratio 9.1
[2023-08-31 09:01] LABS: Direct LDL Cholesterol 84.39 mg/dL (100-129)
[2023-08-31 09:05] LABS: 25-OH Vitamin D, Total 30.5 ng/mL (30-100)
[2023-08-31 09:20] LABS: Thyroid Stimulating Hormone 2.57 uIU/mL (0.465-4.68)
[2023-08-31 09:47] LABS: Hemoglobin A1C 5.4 % (4.0-6.0)
== END ==
LOC: LAB 07:36
PROVIDERS: PCP Internal Medicine Adolescent Medicine; Visit Provider Nurse Practitioner Family
DX: E11.69 Type 2 diabetes mellitus with other specified complication (principal); E03.9 Hypothyroidism, unspecified; E55.9 Vitamin D deficiency, unspecified; D50.9 Iron deficiency anemia, unspecified; Z79.4 Long term (current) use of insulin
CPT/HCPCS: 80053; 80061; 82043; 82306; 82570; 83036; 84443; 85025

== ENCOUNTER 2023-10-01 18:15 | Emergency (ER) | payer OTHER, SELFPAY ==
[2023-10-01 18:30] VITALS: BP 153/96; PULSE 87; RESP 18; TEMP 36.7; O2SAT 98; BMI 33.9
--- NOTE | 2023-10-01 18:33 | ED_ITS ---
Discharge Plan Disposition Patient Disposition: Home, Self-Care Condition: Good Prescriptions Prescriptions: New amoxicillin [amoxicillin] 500 mg tablet 500 mg PO TID 10 Days Qty: 30 0RF No Action meloxicam 15 mg tablet 15 mg PO DAILY Patient Comments: TAKE 1 TABLET BY MOUTH ONCE DAILY levothyroxine 50 mcg tablet 50 mcg PO DAILY Patient Comments: TAKE 1 TABLET BY MOUTH ONCE DAILY trazodone 150 mg tablet 150 mg PO HS Patient Comments: TAKE 1 TABLET BY MOUTH ONCE DAILY AT BEDTIME metformin 1,000 mg tablet 1,000 mg PO BID Patient Comments: TAKE 1 TABLET BY MOUTH TWICE DAILY lisinopril 10 mg tablet 10 mg PO DAILY Patient Comments: TAKE 1 TABLET BY MOUTH ONCE DAILY omeprazole 20 mg capsule,delayed release(DR/EC) 20 mg PO DAILY Patient Comments: TAKE 1 CAPSULE BY MOUTH ONCE DAILY norethindrone ac-eth estradiol [Microgestin 09/29 ()] 1-20 mg-mcg tablet 1 tab PO DAILY Patient Comments: TAKE 1 TABLET BY MOUTH ONCE DAILY propranolol 20 mg tablet 20 mg PO BID Patient Comments: TAKE 1 TABLET BY MOUTH TWICE DAILY ferrous gluconate 324 mg (37.5 mg iron) tablet 324 mg PO DAILY Patient Comments: TAKE 1 TABLET BY MOUTH ONCE DAILY Jardiance 25 mg tablet 25 mg PO DAILY Patient Comments: TAKE 1 TABLET BY MOUTH ONCE DAILY IN THE MORNING Tradjenta 5 mg tablet 5 mg PO DAILY Ozempic 1 mg/dose (4 mg/3 mL) pen injector 1 mg SQ WEEKLY Patient Comments: INJECT 1 MG UNDER THE SKIN ONCE A WEEK ibuprofen 800 mg tablet 800 mg PO TID PRN (Reason: pain) 7 Days Qty: 20 0RF Referrals Follow up/Referrals: Ethan Mercado MD [Primary Care Provider] - See instructions Activity Restrictions/Add. Instructions Additional Instructions/Restrictions: Drink plenty of fluids. Take tylenol or ibuprofen for pain or fever. Take the medications as directed. Follow up with your regular doctor. Follow up with your dentist. GO TO THE ER FOR ANY WORSENING SYMPTOMS Clinical Impressions Clinical Impression: Jaw pain, Abscess, dental Instructions Patient Instructions: Tooth Abscess, Ketorolac Injection Discharge ED Provider: Mike Ayala [facility] General Stated complaint: Right Earache Time Seen by Provider: 10/01/23 18:33 History of Present Illness Provider Complaint: She c/o right upper jaw dental pain for the past 1 week. She states that now it is hurting so bad that it feels like her ear is hurting also. Related Data Home Medications Medication Instructions Recorded Confirmed empagliflozin 25 mg tablet 25 mg PO DAILY Diabetes 07/14/22 03/08/23 (Jardiance) ferrous gluconate 324 mg (37.5 mg 324 mg PO DAILY Supplement 07/14/22 03/08/23 iron) tablet levothyroxine 50 mcg tablet 50 mcg PO DAILY Thyroid 07/14/22 03/08/23 lisinopril 10 mg tablet 10 mg PO DAILY High Blood Pressure 07/14/22 03/08/23 meloxicam 15 mg tablet 15 mg PO DAILY Arthritis 07/14/22 03/08/23 metformin 1,000 mg tablet 1,000 mg PO BID Diabetes 07/14/22 03/08/23 norethindrone acetate 1 mg-ethinyl 1 tab PO DAILY Contraception 07/14/22 03/08/23 estradiol 20 mcg tablet (Microgestin) omeprazole 20 mg capsule,delayed 20 mg PO DAILY Acid Reflux 07/14/22 03/08/23 release propranolol 20 mg tablet 20 mg PO BID High Blood Pressure 07/14/22 03/08/23 trazodone 150 mg tablet 150 mg PO HS Insomnia 07/14/22 03/08/23 linagliptin 5 mg tablet (Tradjenta) 5 mg PO DAILY Diabetes 03/08/23 03/08/23 semaglutide 1 mg/dose (4 mg/3 mL) 1 mg SQ WEEKLY Diabetes 03/08/23 03/08/23 subcutaneous pen injector (Ozempic) Previous Rx's Medication Instructions Recorded ibuprofen 800 mg tablet 800 mg PO TID PRN pain 7 days #20 03/08/23 tabs amoxicillin 500 mg tablet 500 mg PO TID 10 days #30 tabs 10/01/23 Allergies Allergy/AdvReac Type Severity Reaction Status Date / Time No Known Allergies Allergy Verified 10/01/23 18:49 [facility] Disclaimer: The information contained in this section may have been updated after the patient was seen, as this information can be updated by other users. Medical History (Updated 10/01/23 @ 19:02 by Mike Ayala APRN) Diabetes GERD (gastroesophageal reflux disease) HTN (hypertension) Hypothyroidism Family History Other No significant family history Social History Smoking Status: Never smoker alcohol intake: never substance use type: denies use current occupational status: employed Travel in the last 8 weeks: None number of children: 4 ROS Obtained: Yes All systems reviewed & no additional complaints except as documented Constitutional Constitutional: Denies chills and Denies fever(s) Eyes Eyes: Denies eye discharge ENT Ears, Nose, Mouth, and Throat: Reports as per HPI, Denies dizziness, Reports otalgia, Reports facial pain and Denies sore throat Cardiovascular Cardiovascular: Denies chest pain Respiratory Respiratory: Denies shortness of breath, Denies chest congestion, Denies cough, Denies stridor and Denies wheezing Gastrointestinal Gastrointestingal: Denies nausea or vomiting Musculoskeletal Musculoskeletal: Reports system reviewed and no additional complaints, except as documented and Denies arthralgias Integumentary/Breasts Skin/Breast: Denies rash Neurologic Neurologic: Denies dizziness and Denies paresthesias Allergic/Immunologic Allergic/Immunologic: Denies wheezing Physical Exam General General appearance: alert and in no apparent distress Head Head exam: atraumatic, normocephalic and normal inspection Eye Eye exam: Present normal appearance, PERRL and EOMI ENT ENT exam: Present mucous membranes moist, TM's normal bilaterally and normal external ear exam Expanded ENT Exam Nose exam: Absent sinus tenderness Nasal speculum exam: Bilateral: normal Mouth exam: Present normal external inspection; Absent drooling Teeth exam: Present dental tenderness # and gingival swelling Throat exam: Present normal inspection; Absent tonsillar erythema Neck Neck exam: Present normal inspection, full ROM and trachea midline; Absent meningismus or lymphadenopathy Chest Chest inspection: Present normal inspection and symmetric chest wall rise; Absent tenderness Respiratory Respiratory exam: Present normal lung sounds bilaterally; Absent respiratory distress Cardiovascular Cardiovascular exam: Present regular rate and normal rhythm; Absent JVD Abdominal Exam Abdominal exam: Present soft and normal bowel sounds; Absent distention, tenderness or guarding Extremities Exam Extremities exam: Present normal inspection, full ROM and normal capillary refill; Absent calf tenderness Back Exam Back exam: Present normal inspection; Absent tenderness Neurological Exam Neurological exam: Present alert and oriented X3 Psychiatric Psychiatric exam: Present normal affect and normal mood Skin Skin exam: Present warm, dry, intact and normal color Lymphatic Lymphatic Findings: no adenopathy Medical Decision Making Medical Records Medical records reviewed: No I reviewed the patient's medical records. Matthew Inquiry Pt receiving controlled substance: No
[2023-10-01] MEDS: KETOROLAC 60MG/2ML VIAL 60 MG IM (18:51)
--- OUTSIDE RECORDS SUMMARY | 2023-10-01 18:52 | XMS_ITS | Clinical Summary ---
Author Name Unknown Address [address] [place] [address] Phone Organization [facility] Address [address] [place] [address] Phone Care Team Providers Care Rheumatology Specialist Name Role Phone Roshan Loyd MD [ ] Conditions or Problems Problem Name Problem Code Onset Date Status Entry Date Provider Comment Standard Description Annotate Elevated transaminases 594640835 (SNOMED CT) 01/17 Active 01/17 Michelle L Elevated level of transaminase and lactic acid dehydrogenase Abscess, vulva 33363253 (SNOMED CT) 01/17 Active 01/17 Michelle L Abscess of vulva MRSA infection 818350122 (SNOMED CT) 01/17 Active 01/17 Michelle L Methicillin resistant Staphylococcus aureus infection Neutrophilic leukemoid reaction D72.823 (ICD-10-CM ) 01/17 Active 01/17 Michelle L Leukemoid reaction Morbid obesity due to excess calories E66.01 (ICD-10-CM ) 01/17 Active 01/17 Michelle L Morbid (severe) obesity due to excess calories DM Type II 23291941 (SNOMED CT) 01/17 Active 01/17 Michelle L Type 2 diabetes mellitus Benign Essential Hypertension 5726876 (SNOMED CT) 01/17 Active 01/17 Michelle L Benign essential hypertension Medications Medication Instructions Start Date Stop Date Generic Name [facility] Provider OMEPRAZOLE 40 MG CPDR 1 cap daily OMEPRAZOLE [id number] Kayla Simeon METFORMIN HCL ER (OSM) 1000 MG [id number] 1 tab, twice daily with meals METFORMIN HCL 44893979887 Kayla Simeon LISINOPRIL 5 MG TABS 1 tab daily LISINOPRIL 22005845791 Kayla Simeon LEVOTHYROXINE SODIUM 50 MCG TABS 1 tab daily LEVOTHYROXINE SODIUM 93755881146 Kayla Simeon DIAZEPAM 5 MG TABS 1 tab daily DIAZEPAM 70957459081 Kayla Simeon JANUVIA 100 MG TABS 1 tab daily SITAGLIPTIN PHOSPHATE 76751333449 Kayla Simeon LINEZOLID 600 MG TABS 1 tab, twice daily LINEZOLID 45006147620 Kayla Simeon ACIDOPHILUS CAPS 1 cap daily LACTOBACILLUS CAPS 87205782683 Kayla Simeon HYDROCODONE-ACET AMINOPHEN 5-325 MG TABS 1 tab, every 4 hours, prn HYDROCODONE-ACET AMINOPHEN 99858305671 Kayla Simeon Medications Administered No information available. 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 Procedures No information available. Vital Signs No information available. Immunizations No information available. Advance Directives No information available.
--- OUTSIDE RECORDS SUMMARY | 2023-10-01 18:52 | XMS_ITS | Patient Health Record ---
Author Name Unknown Organization [facility] Address [address] [place] [address] Care Team Providers Care Health Aide Name Role Phone Natali Farnsworth Unavailable [phone] Andree Carter Unavailable [phone] Allergies No Known Allergies Reason For Referral [...] Status Risk Notes Problem Gynecological examination normal (350047996970010 ) Cervical smear, as part of routine gynecological examination (Z01.419) 09/17/19 20 Active confirmed Annual without abnormal findings Plan Of Treatment No Information Insurance Providers Payer Name Payer Address Payer Phone Subscriber Number Group Number Insured Name Patient Relationship to Insured Coverage Start Date Coverage End Date [facility] [address] [place] [id number] [place] Aliya Osorio Self - patient is the insured Medical (General) History Medical History History ICD Code Anxiety Bipolar Disease Depression Diabetes Endometriosis Hypothyroidism Weight Disorder Surgical History Surgery Date(Month/Year) Caesarean sections x 3
[2023-10-01] MEDS: AMOXICILLIN 500MG CAPSULE 500 MG PO (19:06)
[2023-10-01 19:16] VITALS: BP 153/96; PULSE 87; RESP 18; TEMP 36.7; O2SAT 98
== END 2023-10-01 19:16 | disposition home or self-care (01) ==
PROVIDERS: Emergency Provider Nurse Practitioner Family; PCP Internal Medicine Adolescent Medicine
DX: K04.7 Periapical abscess without sinus (principal); R68.84 Jaw pain; E11.9 Type 2 diabetes mellitus without complications; E03.9 Hypothyroidism, unspecified; K21.9 Gastro-esophageal reflux disease without esophagitis; I10 Essential (primary) hypertension; Z79.84 Long term (current) use of oral hypoglycemic drugs; Z79.85 Long-term (current) use of injectable non-insulin antidiabetic drugs
CPT/HCPCS: 96372; 99212; 99214; G0463

== ENCOUNTER 2023-10-31 13:30 | Emergency (ER) | payer OTHER, SELFPAY ==
[2023-10-31] VITALS (8 sets, daily range): BP systolic 130–145; BP diastolic 66–92; PULSE 75–83; RESP 14–20; TEMP 36.5–36.6; O2SAT 92–98; BMI 34.9
--- NOTE | 2023-10-31 13:32 | ECG_ITS ---
APPROVED REPORT Exam: Resting ECG HR:80 bpm ECG Measurements Heart Rate 80 AXES MT 145 P 62 QRSd 96 QRS 112 QT 369 T 64 QTc 405 Conclusion SINUS RHYTHM POSSIBLE RIGHT VENTRICULAR HYPERTROPHY [SOME/ALL OF: PROMINENT R IN V1, LATE TRANSITION, RAD, CLIFFORD, SSS] ABNORMAL ECG UNCONFIRMED REPORT Electronically signed by : Ethan Mercado MD 10/31/2023 20:34:37
--- NOTE | 2023-10-31 13:46 | XR_ITS ---
FINAL REPORT CLINICAL HISTORY: Precordial chest pain COMPARISON: 03/08/2023 FINDINGS: The heart size is normal. The mediastinum is normal. There is no focal infiltrate or edema. There are no pleural effusions. There is no pneumothorax. There is no osseous abnormality. IMPRESSION: No acute cardiopulmonary process Reviewed, Interpreted and Dictated by Slava Lopez MD Transcribed by Joann Mullen Authenticated and [facility]
[2023-10-31 13:54] LABS: Basophils % 0.4 % (0.1-2.0); Eosinophils # 0.1 K/mm3 (0.0-0.4); Eosinophils % 1.9 % (0.1-12.0); Hematocrit 42.9 % (37.0-47.0); Hemoglobin 13.8 g/dL (12.2-16.2); Lymphocytes # 1.8 K/mm3 (0.7-4.5); Lymphocytes % 28.1 % (10-50); Mean Corpuscular HGB Conc 32.1 g/dL (31.8-35.4); Mean Corpuscular Hemoglobin 27.7 pg (27.0-31.2); Mean Corpuscular Volume 86.3 fl (81-99); Mean Platelet Volume 10.4 fl (7.4-10.4); Monocytes # 0.3 K/mm3 (0.1-1.0); Neutrophils # 4.2 K/mm3 (1.8-7.8); Neutrophils % 64.7 % (37.0-80.0); Platelet Count 191 K/mm3 (142-424); Red Blood Count 4.97 M/mm3 (4.20-5.40); Red Cell Distribution Width 15.7 % (11.5-17.5); White Blood Count 6.5 K/mm3 (4.8-10.8)
[2023-10-31 13:58] LABS: Alanine Aminotransferase 24 U/L (12-78); Albumin Level 4.3 g/dl (3.5-5.0); Albumin/Globulin Ratio 1.3 (1.1-1.8); Alkaline Phosphatase 89 U/L (38-126); Anion Gap 10.1 mEq/L (5-15); Aspartate Amino Transferase 34 U/L (14-36); Bilirubin,Total 0.4 mg/dl (0.2-1.3); Blood Urea Nitrogen 12 mg/dl (7-17); Calcium 8.7 mg/dl (8.4-10.2); Carbon Dioxide 28 mmol/L (22.0-30.0); Chloride 103 mmol/L (98-107); Creatinine Clearance Estimated 126 mL/min (50-200); Estimated Glomerular Filt Rate 89 ml/min (>60); GFR (African American) 108 ML/MIN (>60); Globulin 3.4 g/dL (1.3-3.2); Glucose 91 mg/dl (74-100); Potassium 4.1 mmoL/L (3.5-5.1); Sodium 137 mmol/L (136-145); Total Protein,Serum 7.7 g/dl (6.3-8.2)
--- NOTE | 2023-10-31 14:01 | ED_ITS ---
Discharge Plan Disposition Patient Disposition: Home, Self-Care Condition: Good Prescriptions Prescriptions: No Action meloxicam 15 mg tablet 15 mg PO DAILY Patient Comments: TAKE 1 TABLET BY MOUTH ONCE DAILY levothyroxine 50 mcg tablet 50 mcg PO DAILY Patient Comments: TAKE 1 TABLET BY MOUTH ONCE DAILY trazodone 150 mg tablet 150 mg PO HS Patient Comments: TAKE 1 TABLET BY MOUTH ONCE DAILY AT BEDTIME metformin 1,000 mg tablet 1,000 mg PO BID Patient Comments: TAKE 1 TABLET BY MOUTH TWICE DAILY lisinopril 10 mg tablet 10 mg PO DAILY Patient Comments: TAKE 1 TABLET BY MOUTH ONCE DAILY omeprazole 20 mg capsule,delayed release(DR/EC) 20 mg PO DAILY Patient Comments: TAKE 1 CAPSULE BY MOUTH ONCE DAILY norethindrone ac-eth estradiol [Microgestin 09/29 ()] 1-20 mg-mcg tablet 1 tab PO DAILY Patient Comments: TAKE 1 TABLET BY MOUTH ONCE DAILY propranolol 20 mg tablet 20 mg PO BID Patient Comments: TAKE 1 TABLET BY MOUTH TWICE DAILY ferrous gluconate 324 mg (37.5 mg iron) tablet 324 mg PO DAILY Patient Comments: TAKE 1 TABLET BY MOUTH ONCE DAILY Jardiance 25 mg tablet 25 mg PO DAILY Patient Comments: TAKE 1 TABLET BY MOUTH ONCE DAILY IN THE MORNING amoxicillin [amoxicillin] 500 mg tablet 500 mg PO TID 10 Days Qty: 30 0RF Tradjenta 5 mg tablet 5 mg PO DAILY Ozempic 1 mg/dose (4 mg/3 mL) pen injector 1 mg SQ WEEKLY Patient Comments: INJECT 1 MG UNDER THE SKIN ONCE A WEEK ibuprofen 800 mg tablet 800 mg PO TID PRN (Reason: pain) 7 Days Qty: 20 0RF Referrals Follow up/Referrals: Provider,Referral, [Referring] - See instructions Activity Restrictions/Add. Instructions Additional Instructions/Restrictions: Contact your PCP if you continue to have discomfort with drinking cold liquids. You may need referral to a GI doctor to discuss this. However if you have severe or persistent chest pain or shortness of breath or lightheadedness or other concerns return to the emergency department as he may be having a cardiac emergency. Clinical Impressions Clinical Impression: Acute chest pain Stand Alone Forms Stand Alone Forms: Work/School Release Discharge ED Provider: José Luis Urena [facility] <José Luis Urena MD - Last Filed: 11/03/23 20:28> General Chief Complaint: Chest Pain Stated Complaint: Chest Pain Time Seen by Provider: 10/31/23 13:31 Mode of Arrival: Ambulatory Source of Information: Patient Limitations: No Limitations Description of Symptoms (Recalled from ER Triage Doc. by RN): pt presents to ED with c/o chest pain. pt reports she was taking a drink of water and felt like the water got stuck in her throat. pt reports pain located in the middle of the chest. pt also reports feeling jittery and dizziness. History of Present Illness HPI narrative: 48-year-old female history of hypertension and diabetes presenting with chest pain. Patient states that she was on her lunch break, she took a gulp of room temperature water and had an immediate severe chest pain that was substernal. Did not radiate initially, after couple seconds started radiating to her left shoulder. She states it felt like water got stuck. This lasted for about a minute or so got better. She is never had anything like this in the past. No shortness of breath, nausea or vomiting, diaphoresis, but she does state that she felt cold at the time. Related Data Home Medications Medication Instructions Recorded Confirmed empagliflozin 25 mg tablet 25 mg PO DAILY Diabetes 07/14/22 03/08/23 (Jardiance) ferrous gluconate 324 mg (37.5 mg 324 mg PO DAILY Supplement 07/14/22 03/08/23 iron) tablet levothyroxine 50 mcg tablet 50 mcg PO DAILY Thyroid 07/14/22 03/08/23 lisinopril 10 mg tablet 10 mg PO DAILY High Blood Pressure 07/14/22 03/08/23 meloxicam 15 mg tablet 15 mg PO DAILY Arthritis 07/14/22 03/08/23 metformin 1,000 mg tablet 1,000 mg PO BID Diabetes 07/14/22 03/08/23 norethindrone acetate 1 mg-ethinyl 1 tab PO DAILY Contraception 07/14/22 03/08/23 estradiol 20 mcg tablet (Microgestin) omeprazole 20 mg capsule,delayed 20 mg PO DAILY Acid Reflux 07/14/22 03/08/23 release propranolol 20 mg tablet 20 mg PO BID High Blood Pressure 07/14/22 03/08/23 trazodone 150 mg tablet 150 mg PO HS Insomnia 07/14/22 03/08/23 linagliptin 5 mg tablet (Tradjenta) 5 mg PO DAILY Diabetes 03/08/23 03/08/23 semaglutide 1 mg/dose (4 mg/3 mL) 1 mg SQ WEEKLY Diabetes 03/08/23 03/08/23 subcutaneous pen injector (Ozempic) Previous Rx's Medication Instructions Recorded ibuprofen 800 mg tablet 800 mg PO TID PRN pain 7 days #20 03/08/23 tabs amoxicillin 500 mg tablet 500 mg PO TID 10 days #30 tabs 10/01/23 Allergies Allergy/AdvReac Type Severity Reaction Status Date / Time No Known Allergies Allergy Verified 10/01/23 18:49 [facility] <José Luis Urena MD - Last Filed: 11/03/23 20:28> [facility] Disclaimer: The information contained in this section may have been updated after the patient was seen, as this information can be updated by other users. Medical History (Updated 10/31/23 @ 15:52 by Joslyn Painter MD) Diabetes GERD (gastroesophageal reflux disease) HTN (hypertension) Hypothyroidism Family History Other No significant family history Social History Smoking Status: Never smoker alcohol intake: never substance use type: denies use current occupational status: employed Travel in the last 8 weeks: None number of children: 4 <José Luis Urena MD - Last Filed: 11/03/23 20:28> ROS Obtained: Yes All systems reviewed & no additional complaints except as documented Physical Exam <José Luis Urena MD - Last Filed: 11/03/23 20:28> General General appearance: alert Neck Neck exam: Present trachea midline Chest Chest inspection: Present normal inspection and symmetric chest wall rise Respiratory Respiratory exam: Present normal lung sounds bilaterally; Absent respiratory distress, wheezes, stridor, accessory muscle use or prolonged expiratory phase Cardiovascular Cardiovascular exam: Present regular rate, normal rhythm and systolic murmur (Right upper sternal border) Extremities Exam Extremities exam: Absent edema Neurological Exam Neurological exam: Present alert, oriented X3 and CN II-XII intact Skin Skin exam: Present warm and dry; Absent cyanosis, diaphoresis or pallor HEART Score <José Luis Urena MD - Last Filed: 11/03/23 20:28> HEART Score History (anamnesis): Moderately suspicious ECG: Normal Age: 45-65 years Risk factors: 1-2 risk factors Troponin: </= normal limit HEART Score: 3 <Joslyn Painter MD - Last Filed: 10/31/23 15:53> HEART Score HEART Score assessment performed?: Yes HEART Score: 2 Critical Care <José Luis Urena MD - Last Filed: 11/03/23 20:28> Critical Care Time Critical Care Time: No Medical Decision Making <José Luis Urena MD - Last Filed: 11/03/23 20:28> Medical Records Medical records reviewed: Yes I reviewed the patient's medical records. Matthew Inquiry Pt receiving controlled substance: No Matthew was queried for this patient: No Vital Signs Vital Signs: 10/31/23 13:39 10/31/23 13:44 10/31/23 13:33 Temperature 97.7 F Temperature Source Oral Pulse Rate 82 83 Pulse Rate [Left Radial] 82 Respiratory Rate 15 Blood Pressure 145/92 H Blood Pressure [Right Arm] 145/92 H Blood Pressure Mean Blood Pressure Mean [Right Arm] 109 02 Sat by Pulse Oximetry 98 97 Oxygen Delivery Method Room Air 10/31/23 14:00 10/31/23 14:30 10/31/23 15:00 Temperature Temperature Source Pulse Rate 80 76 83 Pulse Rate [Left Radial] Respiratory Rate 20 20 Blood Pressure 137/84 130/75 137/66 Blood Pressure [Right Arm] Blood Pressure Mean 93 89 Blood Pressure Mean [Right Arm] 02 Sat by Pulse Oximetry 97 92 L 94 L Oxygen Delivery Method 10/31/23 15:53 10/31/23 15:30 Temperature 97.9 F Temperature Source Pulse Rate 75 75 Pulse Rate [Left Radial] Respiratory Rate 14 Blood Pressure 135/73 135/73 Blood Pressure [Right Arm] Blood Pressure Mean 84 Blood Pressure Mean [Right Arm] 02 Sat by Pulse Oximetry 97 Oxygen Delivery Method Room Air Lab Data Labs: Lab Results 10/31/23 13:36: WBC 6.5, RBC 4.97, Hgb 13.8, Hct 42.9, MCV 86.3, MCH 27.7, MCHC 32.1, RDW 15.7, Plt Count 191, MPV 10.4, Neut % (Auto) 64.7, Lymph % (Auto) 28.1, [place] % (Auto) 5.0, Eos % (Auto) 1.9, Baso % (Auto) 0.4, Neut # (Auto) 4.2, Lymph # (Auto) 1.8, [place] # (Auto) 0.3, Eos # (Auto) 0.1, Baso # (Auto) 0.0, Sodium 137, Potassium 4.1, Chloride 103, Carbon Dioxide 28, Anion Gap 10.1, BUN 12, Creatinine 0.70, Estimated Creat Clear 126, Estimated GFR 89, Est GFR ( Amer) 108, Glucose 91, Calcium 8.7, Total Bilirubin 0.4, AST 34, ALT 24, Alkaline Phosphatase 89, Troponin I < 0.01, Total Protein 7.7, Albumin 4.3, Globulin 3.4 H, Albumin/Globulin Ratio 1.3 10/31/23 13:47: Lipase 102 10/31/23 13:36 10/31/23 13:36 Response Orders (Tests/Meds): ED MEDICATIONS Discontinued Medications Generic Name Dose Route Start Last Admin Trade Name Freq PRN Reason Stop Dose Admin Aspirin 324 mg 10/31/23 14:01 10/31/23 14:14 Aspirin 81mg Chewable Tablet PO 10/31/23 14:02 324 mg ONCE ONE Administration Belladonna Alkaloids 60 ml 10/31/23 14:01 10/31/23 14:15 Belladonna Alkaloids 60 Ml Ml PO 10/31/23 14:02 60 ml ONCE ONE Administration Sodium Chloride 10 ml 10/31/23 13:46 Sodium Chloride 0.9% 10ml Flush Syringe IV 11/30/23 13:45 NEEDED PRN Maintain IV Site ORDERS Category Date Time Status XR chest portable Stat Exams 10/31/23 13:46 Completed Complete Blood Count Auto Diff Stat Lab 10/31/23 13:36 Completed Comprehensive Metabolic Panel Stat Lab 10/31/23 13:36 Completed Lipase Stat Lab 10/31/23 13:47 Completed Troponin I Stat Lab 10/31/23 13:36 Completed ECG initial Besson Routine Y 10/31/23 13:32 Completed MDM Narrative Medical Decision Narrative: 48-year-old female history of hypertension and diabetes presenting with chest pain. Patient states that she was on her lunch break, she took a gulp of room temperature water and had an immediate severe chest pain that was substernal. Did not radiate initially, after couple seconds started radiating to her left shoulder. She states it felt like water got stuck. This lasted for about a minute or so got better. She is never had anything like this in the past. No shortness of breath, nausea or vomiting, diaphoresis, but she does state that she felt cold at the time. [It should be noted that patient has , which is currently not at goal and complicates care.] History was obtained via conversa tion with []. On arrival, patient hemodynamically stable, alert, [oriented x4, ][appropriate, ]GCS [15], moving all extremities spontaneously, pupils equal and reactive to light. Full physical exam performed and significant for [Other relevant findings/NIHSS]. Differential includes []. Patient was given [] for symptomatic management[ and correction of underlying abnormalities]. Workup independently interpreted and significant for []. See radiology read for full review of final results. [Independent interpretation of EKG shows] []. Patient placed on continuous cardiac monitoring and continuous pulse ox with initial blood pressure [], heart rate [], saturation []. [heart/[id number]/Wells/PERC/Age adjusted/YEARS]. [] was considered, but deemed unnecessary due to []. Patient was placed in observation beginning at [time] in order to [medical necessity] and determine need for admission versus home-going. The patient was provided [meds/serial exams/monitoring] while awaiting results. Independent interpretation of results demonstrated []. On reevaluation, []. At this time, I feel patient is appropriate [for admission/discharge]. Total observation time []. On reevaluation, [additional tests/treatment]. [Consultants] [obs] Given patient presentation, workup, history, this most likely represents []. Less likely []. [SDH] <Joslyn Painter MD - Last Filed: 10/31/23 15:53> Vital Signs Vital Signs: 10/31/23 13:39 10/31/23 13:44 10/31/23 13:33 Temperature 97.7 F Temperature Source Oral Pulse Rate 82 83 Pulse Rate [Left Radial] 82 Respiratory Rate 15 Blood Pressure 145/92 H Blood Pressure [Right Arm] 145/92 H Blood Pressure Mean Blood Pressure Mean [Right Arm] 109 02 Sat by Pulse Oximetry 98 97 Oxygen Delivery Method Room Air 10/31/23 14:00 10/31/23 14:30 10/31/23 15:00 Temperature Temperature Source Pulse Rate 80 76 83 Pulse Rate [Left Radial] Respiratory Rate 20 20 Blood Pressure 137/84 130/75 137/66 Blood Pressure [Right Arm] Blood Pressure Mean 93 89 Blood Pressure Mean [Right Arm] 02 Sat by Pulse Oximetry 97 92 L 94 L Oxygen Delivery Method 10/31/23 15:53 10/31/23 15:30 Temperature 97.9 F Temperature Source Pulse Rate 75 75 Pulse Rate [Left Radial] Respiratory Rate 14 Blood Pressure 135/73 135/73 Blood Pressure [Right Arm] Blood Pressure Mean 84 Blood Pressure Mean [Right Arm] 02 Sat by Pulse Oximetry 97 Oxygen Delivery Method Room Air Lab Data Labs: Lab Results 10/31/23 13:36: WBC 6.5, RBC 4.97, Hgb 13.8, Hct 42.9, MCV 86.3, MCH 27.7, MCHC 32.1, RDW 15.7, Plt Count 191, MPV 10.4, Neut % (Auto) 64.7, Lymph % (Auto) 28.1, [place] % (Auto) 5.0, Eos % (Auto) 1.9, Baso % (Auto) 0.4, Neut # (Auto) 4.2, Lymph # (Auto) 1.8, [place] # (Auto) 0.3, Eos # (Auto) 0.1, Baso # (Auto) 0.0, Sodium 137, Potassium 4.1, Chloride 103, Carbon Dioxide 28, Anion Gap 10.1, BUN 12, Creatinine 0.70, Estimated Creat Clear 126, Estimated GFR 89, Est GFR ( Amer) 108, Glucose 91, Calcium 8.7, Total Bilirubin 0.4, AST 34, ALT 24, Alkaline Phosphatase 89, Troponin I < 0.01, Total Protein 7.7, Albumin 4.3, Globulin 3.4 H, Albumin/Globulin Ratio 1.3 10/31/23 13:47: Lipase 102 Response Orders (Tests/Meds): ED MEDICATIONS Discontinued Medications Generic Name Dose Route Start Last Admin Trade Name Freq PRN Reason Stop Dose Admin Aspirin 324 mg 10/31/23 14:01 10/31/23 14:14 Aspirin 81mg Chewable Tablet PO 10/31/23 14:02 324 mg ONCE ONE Administration Belladonna Alkaloids 60 ml 10/31/23 14:01 10/31/23 14:15 Belladonna Alkaloids 60 Ml Ml PO 10/31/23 14:02 60 ml ONCE ONE Administration Sodium Chloride 10 ml 10/31/23 13:46 Sodium Chloride 0.9% 10ml Flush Syringe IV 11/30/23 13:45 NEEDED PRN Maintain IV Site ORDERS Category Date Time Status XR chest portable Stat Exams 10/31/23 13:46 Completed Complete Blood Count Auto Diff Stat Lab 10/31/23 13:36 Completed Comprehensive Metabolic Panel Stat Lab 10/31/23 13:36 Completed Lipase Stat Lab 10/31/23 13:47 Completed Troponin I Stat Lab 10/31/23 13:36 Completed ECG initial Besson Routine Y 10/31/23 13:32 Completed MDM Narrative Medical Decision Narrative: 48-year-old female history of hypertension and diabetes presenting with chest pain. Patient states that she was on her lunch break, she took a gulp of room temperature water and had an immediate severe chest pain that was substernal. Did not radiate initially, after couple seconds started radiating to her left shoulder. She states it felt like water got stuck. This lasted for about a minute or so got better. She is never had anything like this in the past. No shortness of breath, nausea or vomiting, diaphoresis, but she does state that she felt cold at the time. On arrival, patient hemodynamically stable, alert, oriented GCS 15, moving all extremities spontaneously, pupils equal and reactive to light. Full physical exam performed and significant for well-appearing female in no acute distress, currently asymptomatic. Differential includes ACS, arrhythmia, esophageal spasm, much lower concern of esophageal rupture, aortic pathology, or pulmonary embolism given patient's return to baseline, currently asymptomatic with normal vitals, and has her normal ability to tolerate fluids since the episode of chest pain. Patient was given GI cocktail for symptomatic management with no return of symptoms. Workup was pending at time of transition of care from Dr. Urena to Dr. Painter. Joslyn Painter MD: Workup independently interpreted and significant for troponin within normal limits. Other labs independently reviewed and interpreted include essentially normal CBC and CMP. Chest x-ray independently reviewed and interpreted is normal with no focal consolidation, signs of esophageal rupture, mediastinitis, no apparent complications or emergent causes of her chest pain. EKG I independently reviewed and interpreted shows normal rate, regular rhythm, no significant ST segment elevation, normal sinus rhythm. Advised patient that we would prefer for her to stay longer for second troponin to evaluate for change given her chest pain episode was quite recent but patient prefers to monitor her symptoms at home as she has had no recurrence of her symptoms. Based on shared decision making patient is stable for discharge and continuing to monitor symptoms at home. Patient was monitored for over 2 hours in the emergency department with no symptoms. Discussed with patient that the most likely cause of her symptoms based on history and physical exam and reassuring workup is esophageal spasm due to drinking water at work but did provide return precautions related to signs of ACS and other cardiac and pulmonary emergencies. Advised patient to follow-up with her primary care as needed or return to the emergency department with worsening or persistent symptoms.
[2023-10-31] MEDS: ASPIRIN 81MG CHEWABLE TABLET 324 MG PO (14:14)
[2023-10-31] MEDS: BELLADONNA ALKALOIDS 60 ML ML PO (14:15)
[2023-10-31 14:34] LABS: Troponin I < 0.01 ng/ml (0.00-0.034)
[2023-10-31 15:32] LABS: Lipase 102 U/L (23-300)
--- NOTE | 2023-10-31 15:43 | PC.NURSE ---
Dr Painter had gone in to see the patient and she also got her some ice water when she came out
== END 2023-10-31 16:00 | disposition home or self-care (01) ==
PROVIDERS: Emergency Provider Emergency Medicine; PCP Internal Medicine Adolescent Medicine
DX: R07.9 Chest pain, unspecified (principal); R42 Dizziness and giddiness; I10 Essential (primary) hypertension; E11.9 Type 2 diabetes mellitus without complications; E03.9 Hypothyroidism, unspecified
CPT/HCPCS: 71045; 80053; 83690; 84484; 85025; 93005; 99285

== ENCOUNTER 2023-12-15 09:14 | Outpatient (CLI) | payer OTHER, SELFPAY ==
[2023-12-16 09:05] LABS: FSH 18.2 mIU/mL (.)
[2023-12-18 08:33] LABS: Antinuclear Antibodies (ANA) Negative
== END 2023-12-15 23:59 ==
LOC: LAB 09:15
PROVIDERS: PCP Internal Medicine Adolescent Medicine; Visit Provider Obstetrics & Gynecology
DX: N95.1 Menopausal and female climacteric states (principal); R21 Rash and other nonspecific skin eruption; N89.8 Other specified noninflammatory disorders of vagina
CPT/HCPCS: 36415; 83001; 83002; 86038; 86225; 86235

== ENCOUNTER 2024-01-17 12:19 | Outpatient (CLI) | payer OTHER, SELFPAY ==
[2024-01-21 00:08] LABS: Neisseria gonorrhoeae, NAA Negative (Negative)
== END 2024-01-17 23:59 | disposition home or self-care (01) ==
LOC: LAB.DROPOF 01-18 12:20
PROVIDERS: PCP Obstetrics & Gynecology; Visit Provider Obstetrics & Gynecology
DX: N89.8 Other specified noninflammatory disorders of vagina (principal); Z79.899 Other long term (current) drug therapy
CPT/HCPCS: 87491; 87591

== ENCOUNTER 2024-01-28 15:36 | Outpatient (CLI) | payer OTHER, SELFPAY ==
--- NOTE | 2024-01-28 15:38 | US_ITS ---
PROCEDURE: US TRANSVAGINAL CLINICAL INDICATION: bleeding and pain with iud COMPARISON: CT CT ABDOMEN PELVIS W CON from 07/17/[address] ABDOMEN WO/W CON from 02/23/2023 FINDINGS: Transvaginal sonographic images of the pelvis were obtained. UTERUS: 8.5cm x 5.4cmx 4.8 cm anteverted with a combined endometrial thickness of 3.5mm. There is an IUD within the uterine cavity in the correct position. A scar is visualized. LEFT OVARY: 2.8 cmx1.9 cmx2.2cm with a volume of 6.1ml. There is a follicle in the left ovary measuring 1.5 cm x 1.6 cm x 1.5 cm. RIGHT OVARY: 2.4 cmx 1.2 cmx1.5 cm with a volume of 2.3ml. Both ovaries are seen and appear normal. Doppler flow to both ovaries are seen. There is no fluid in the cul-de-sac. IMPRESSION: 1. Anteverted uterus normal in shape and size. The endometrium is thin. 2. Within the uterine cavity is an IUD in the correct position. 3. Both ovaries are seen and appear normal. The left ovary has a small follicle measuring 1.6 cm. 4. No fluid in the cul-de-sac. Dictated by: Tigre Arevalo MD 01/28/2024 17:05 Tigre Arevalo MD in OV 01/28/2024 17:05
== END 2024-01-28 23:59 | disposition home or self-care (01) ==
LOC: RAD 15:38
PROVIDERS: PCP Internal Medicine Adolescent Medicine; Visit Provider Obstetrics & Gynecology
DX: Z30.431 Encounter for routine checking of intrauterine contraceptive device; T83.83XA Hemorrhage due to genitourinary prosthetic devices, implants and grafts, initial encounter
CPT/HCPCS: 76830

== ENCOUNTER 2024-01-30 10:23 | Day surgery (SDC) | payer OTHER, SELFPAY ==
[2024-01-29 10:50] VITALS: BMI 34.2
--- OUTSIDE RECORDS SUMMARY | 2024-01-30 10:28 | XMS_ITS | Clinical Summary ---
Author Name Unknown Address [address] [place] [address] Phone Organization [facility] Address [address] [place] [address] Phone Care Team Providers Care Field Service Coordinator Name Role Phone Roshan Loyd MD [ ] Conditions or Problems Problem Name Problem Code Onset Date Status Entry Date Provider Comment Standard Description Annotate Elevated transaminases 269992874 (SNOMED CT) 01/17 Active 01/17 Michelle Leal Elevated level of transaminase and lactic acid dehydrogenase Abscess, vulva 22506355 (SNOMED CT) 01/17 Active 01/17 Michelle Leal Abscess of vulva MRSA infection 071628532 (SNOMED CT) 01/17 Active 01/17 Michelle Leal Methicillin resistant Staphylococcus aureus infection Neutrophilic leukemoid reaction D72.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 (ICD-10-CM ) 01/17 Active 01/17 Michelle Leal Leukemoid reaction Morbid obesity due to excess calories E66.01 (ICD-10-CM ) 01/17 Active 01/17 Michelle Leal Morbid (severe) obesity due to excess calories DM Type II 12413964 (SNOMED CT) 01/17 Active 01/17 Michelle Leal Type 2 diabetes mellitus Benign Essential Hypertension 0396243 (SNOMED CT) 01/17 Active 01/17 Michelle Leal Benign essential hypertension Medications Medication Instructions Start Date Stop Date Generic Name [facility] Provider OMEPRAZOLE 40 MG CPDR 1 cap daily OMEPRAZOLE 40884722430 Kayla Simeon METFORMIN HCL ER (OSM) 1000 MG [id number] 1 tab, twice daily with meals METFORMIN HCL 28119964343 Kayla Simeon LISINOPRIL 5 MG TABS 1 tab daily LISINOPRIL 67180729954 Kayla Simeon LEVOTHYROXINE SODIUM 50 MCG TABS 1 tab daily LEVOTHYROXINE SODIUM 87506582115 Kayla Simeon DIAZEPAM 5 MG TABS 1 tab daily DIAZEPAM 24611212666 Kayla Simeon JANUVIA 100 MG TABS 1 tab daily SITAGLIPTIN PHOSPHATE 77831259849 Kayla Simeon LINEZOLID 600 MG TABS 1 tab, twice daily LINEZOLID 30461812191 Kayla Simeon ACIDOPHILUS CAPS 1 cap daily LACTOBACILLUS CAPS 20748502385 Kayla Simeon HYDROCODONE-ACET AMINOPHEN 5-325 MG TABS 1 tab, every 4 hours, prn HYDROCODONE-ACET AMINOPHEN 44349426022 Kayla Simeon Medications Administered No information available. 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 Procedures No information available. Vital Signs No information available. Immunizations No information available. Advance Directives No information available.
--- OUTSIDE RECORDS SUMMARY | 2024-01-30 10:28 | XMS_ITS | Patient Health Record ---
Author Name Unknown Organization [facility] Address [address] [place] [address] Care Team Providers Care Recycling Or Rubbish Collector Name Role Phone Natali Farnsworth Unavailable [phone] Allergies No Known Allergies Reason For Referral [...] Status Risk Notes Problem Gynecological examination normal ([id number] ) Cervical smear, as part of routine gynecological examination (Z01.419) 09/17/19 Active confirmed Annual without abnormal findings Plan Of Treatment No Information Insurance Providers Payer Name Payer Address Payer Phone Subscriber Number Group Number Insured Name Patient Relationship to Insured Coverage Start Date Coverage End Date [facility] [address] [place] [phone] [id number] [facility] Aliya Osorio Self - patient is the insured Medical (General) History Medical History History ICD Code Anxiety Bipolar Disease Depression Diabetes Endometriosis Hypothyroidism Weight Disorder Surgical History Surgery Date(Month/Year) Caesarean sections x 3
[2024-01-30 11:04] VITALS: BP 128/80; PULSE 73; RESP 18; TEMP 36.6; O2SAT 100
[2024-01-30 11:05] LABS: Urine Pregnancy, HCG Qual. Negative (Negative)
[2024-01-30] MEDS: LACTATED RINGERS 1000ML 1,000 ML 25 ML IV (11:16)
[2024-01-30 11:20] LABS: POC Glucose,Bedside 76 (70-110)
--- NOTE | 2024-01-30 12:06 | HMH.SCOPE ---
Procedure: Date: 01/30/24 Patient Date of :: 1975 Procedure Performed:: Colonoscopy Indications:: The patient is a 48-year-old who presents for screening colonoscopy for colorectal cancer. This is the patient's first colonoscopy Performing Provider:: Estuardo Tenorio MD Referring Provider:: Silver Mercado MD Sedation:: See RN records Procedure:: After placing the patient in the left lateral decubitus position, the colonoscopy was gently inserted into the rectum and under direct visualization advanced to the cecum which was identified by transillumination in the right lower quadrant, identification of the ileocecal valve, appendiceal orifice, and cecal strap. Color, texture, mucosa, and anatomy of the colon were carefully examined with the scope. Findings:: The quality of the bowel preparation was excellent. There were a few scattered diverticula in the sigmoid colon. The remaining colon appeared normal. On retroflexion view internal hemorrhoids were seen in the rectum. Impression: Diverticulosis of the sigmoid colon Recommendations:: Higher fiber diet Repeat colonoscopy in 10 years, sooner if clinically indicated Complications:: None Estimated blood obtained (mL): 0 Colonoscopy Component Colonoscopy Component Was a colonoscopy performed during today's procedure?: Yes Recommended follow up colonoscopy of at least 10 years?: Yes
[2024-01-30 12:08] VITALS: BP 81/48; PULSE 76; RESP 16; TEMP 36.8; O2SAT 97
--- NOTE | 2024-01-30 12:08 | EXP.ANES.CKL ---
[facility] Disclaimer: The information contained in this section may have been updated after the patient was seen, as this information can be updated by other users. Medical History Vasomotor symptoms due to menopause delivery delivered GERD (gastroesophageal reflux disease) Hypothyroidism HTN (hypertension) Diabetes Surgical History No significant past surgical history Family History Other Anemia Asthma Cancer Diabetes Hypertension Social History Smoking Status: Never smoker alcohol intake: never substance use type: denies use current occupational status: employed Travel in the last 8 weeks: None number of children: 4 [facility] Anesthesia Checklist Patient Identification Patient Identification: Verbal (Name & ) Structural Data Admitted From: Home Planned Operative Procedure/s: colonoscopy Consent for Planned Operative Procedure(s) Verified: Yes Airway Assessment Mallampati Score:: Class II C-Spine Mobility Assessed: Yes TMJ Mobility Assessed: Yes Dentition: Good Dentition Neurological Assessment Level of Consciousness: Awake, Alert and Appropriate Anesthesia Plan Anesthesia Risk discussed: Yes Anesthesia Plan: Verified ASA Class: II Anesthesia Type: MAC
[2024-01-30 12:18] VITALS: BP 90/46; PULSE 77; RESP 16; O2SAT 97
[2024-01-30 12:28] VITALS: BP 94/46; PULSE 74; RESP 16; O2SAT 97
[2024-01-30 12:38] VITALS: BP 100/62; PULSE 70; RESP 18; O2SAT 98
== END 2024-01-30 12:38 | disposition home or self-care (01) ==
PROVIDERS: PCP Internal Medicine Adolescent Medicine; Visit Provider Internal Medicine
PROC: 0DJD8ZZ Inspection of Lower Intestinal Tract, Via Natural or Artificial Opening Endoscopic (ICD-10-PCS; CPT 45378; principal; 2024-01-30 11:30)
DX: Z12.11 Encounter for screening for malignant neoplasm of colon (principal); K64.8 Other hemorrhoids; K57.30 Diverticulosis of large intestine without perforation or abscess without bleeding; Z79.899 Other long term (current) drug therapy
CPT/HCPCS: 45378; 81025; 82962

== ENCOUNTER 2025-07-30 17:26 | Outpatient (CLI) | payer OTHER, SELFPAY ==
--- OUTSIDE RECORDS SUMMARY | 2025-07-30 17:34 | XMS_ITS | Encounter Summary ---
Author Organization Healthcare Address [address] [place] [address] Care Team Providers Care Dialysis Nurse Name Role Phone Unavailable Primary Care Provider Unavailabl e Encounter Details Date Type Department Care Team (Latest Contact Info) Description 07/17/2022 Community Orders [facility] [address] [place] [address] Heather Day S, [employer] [address] [place] [phone] Diabetes mellitus without complication (CMS/HCC) (Primary Dx) Social History Tobacco Use Types Packs/Day Years Used Date Smoking Tobacco: Never Assessed Comments Unknown Sex and Gender Information Value Date Recorded Sex Assigned at Not on file Legal Sex Female 9:11 PM EDT Gender Identity Not on file Sexual Orientation Not on file documented as of this encounter Plan of Treatment Not on file documented as of this encounter Visit Diagnoses Diagnosis Diabetes mellitus without complication- Primary Type II or unspecified type diabetes mellitus without mention of complication, not stated as uncontrolled documented in this encounter
--- OUTSIDE RECORDS SUMMARY | 2025-07-30 17:34 | XMS_ITS | Clinical Summary ---
Author Organization [facility] [employer] [facility] Address [address] [place] [address] Care Team Providers Care Paving Rammer Name Role Phone Liliya Aburto IKE Primary Care Provid er Allergies No known active allergies Medications metFORMIN (GLUCOPHAGE) 1000 MG tablet Take 1,000 mg by mouth 2 (Two) Times a Day With Meals. Active levothyroxine (SYNTHROID, LEVOTHROID) 50 MCG tablet Take 50 mcg by mouth Daily. Active diazePAM (VALIUM) 5 MG tablet Take 5 mg by mouth Daily. Active lisinopril (PRINIVIL,ZESTRI L) 5 MG tablet Take 5 mg by mouth Daily. Active omeprazole (priLOSEC) 40 MG capsule Take 40 mg by mouth Daily. Active HYDROcodone-acet aminophen (NORCO) 5-325 MG per tablet Take 1 tablet by mouth Every 4 (Four) Hours As Needed for Moderate Pain . 30 tablet 9 Active lactobacillus acidophilus (RISAQUAD) capsule capsule Take 1 capsule by mouth Daily. 30 capsule 9 Active SITagliptin (JANUVIA) 100 MG tablet Take 1 tablet by mouth Daily. 30 tablet 3 9 Active linezolid (ZYVOX) 600 MG tablet Take 1 tablet by mouth 2 (Two) Times a Day for 7 days 14 tablet 01/15/2019 3:34 PM EDT 9 Active Active Problems Problem Noted Date Diagnosed Date Vulvar abscess 01/08/2019 Vulvar abscess 01/08/2019 Type 2 diabetes mellitus 01/08/2019 Elevated liver enzymes 01/08/2019 Microcytic anemia 01/08/2019 Hypothyroidism 01/08/2019 Essential hypertension 01/08/2019 Anxiety and depression 01/08/2019 Sepsis 01/08/2019 Social History Tobacco Use Types Packs/Day Years Used Date Smoking Tobacco: Former Cigarettes Smokeless Tobacco: Never Alcohol Use Standard Drinks/Week Comments No 0 (1 standard drink = 0.6 oz pur e alcohol) AUDIT-C Answer Date Recorded Frequency of Alcohol Consumption Never 01/09/2019 Average Number of Drinks Not on file Frequency of Binge Drinking Not on file 10/2018 Abuse Screen Answer Date Recorded Unsafe at Home or Work/School Not on file Feels Threatened by Someone? Not on file 08/2023 Does Anyone Keep You from Co ntacting Others or Doint Things Outside the Home? Not on file 06/21/2023 Physical Sign of Abuse Present Not on file 1 Housing Stability Answer Date Recorded Current Living Arrangements Not on file 06/10 Potentially Unsafe Housing Conditions Not on mikala e 06/21/2023 Family and Community Support Answer Oscar e Recorded Help with Day-to-Day Activities Not on file 06/21/2023 Lonely or Isolated Not on file 06/21/2023 Employment Answer Date Recorded Do you want help finding or keeping work or a ramon b? Not on file 06/21/2023 Disabilities Answer Date Recorded Concentrating, Remembering, or Making Decisions Difficulty Not on file 06/21/2023 Doing Errands Independently Difficulty Not on fi le 06/21/2023 Education Answer Date Recorded Help with school or training? Not on file Preferred Language Not on file 06/21/2023 Comments No Sex and Gender Information Value Date Recorded Sex Assigned at Not on file Legal Sex Female 3:02 PM EDT Gender Identity Not on file Sexual Orientation Not on file Last Filed Vital Signs Vital Sign Reading Time Taken Comments Blood Pressure 119/77 01/15/2019 8:36 AM EDT Pulse 71 01/15/2019 5:28 AM EDT Temperature 36.3 C (97.4 F) 01/15/2019 5:28 AM EDT Respiratory Rate 21 01/15/2019 5:28 AM EDT Oxygen Saturation 90% 01/15/2019 8:36 AM EDT Inhaled Oxygen Concentration - - Weight 104 kg (229 lb 12.8 oz) 01/08/2019 4:14 P M EDT Height 152.4 cm (5') 01/08/2019 4:14 PM EDT Body Mass Index 44.88 01/08/2019 4:14 PM EDT Plan of Treatment Health Maintenance Due Date Last Done Comments Annual Gynecologic Pelvic an d Breast Exam 1975 TDAP/TD VACCINES (1 - Tdap) 1994 MAMMOGRAM 2015 ANNUAL PHYSICAL 01/16/2019 HEPATITIS C SCREENING 01/16/2019 COLOGUARD 2020 COLON CANCER SCREENING 5 YEA R SIGMOIDOSCOPY 2020 COLONOSCOPY 2020 [address] CANCER SCREENING 2020 CT COLONOGRAPHY 2020 FECAL OCCULT BLOOD TEST 2020 FIT Testing (1 year) 2020 INFLUENZA VACCINE 04/10/2025 HEMOGLOBIN A1C Discontinued 01/08/2019 Pneumococcal Vaccine 0-49 Aged Out No longer eligible based on patient's age to complete this topic Procedures Procedure Name Priority Date/Time Associated Diagnosis Comments HEMOGLOBIN A1C Routine 01/08/2019 5:21 PM EDT from Last 3 Months or Most Recently Relevant to Health Maintenance Results * (ABNORMAL) Hemoglobin A1c (01/08/2019 5:21 PM EDT) Hemoglobin A1C 9.80(H) 4.80 - 5.60 % 01/08/2019 6:23 PM EDT [facility] Blood Venipuncture / Unknown 01/08/2019 5:21 PM EDT 01/08/2019 5:45 PM EDT Narrative [facility] - 01/08/2019 6:23 PM EDT Hemoglobin A1C Ranges: Increased Risk for Diabetes 5.7% to 6.4% Diabetes >= 6.5% Diabetic Goal < 7.0% us Natali Farnsworth MD LAB BLOOD ORDERABLES Final R esult [facility]
[address] [place] [address], [place] [phone] from Last 3 Months or Most Recently Relevant to Health Maintenance Additional Health Concerns Infection Onset Date Last Indicated MRSA 01/09/2019 01/09/2019 Insurance [facility] PPO Advance Directives * CPR (Attempt to Resuscitate) (Latest Code Status on File) Date Activated Date Inactivated Comments 01/08/2019 4:03 PM 01/15/2019 7:06 PM Question Answer Comments Code Status (Patient has no pulse and is not breathing): CPR (Attempt to Resuscitate) Medical Interventions (Patie nt has pulse or is breathing): Full Care Teams Paving Rammer Relationship Specialty Start Date End Date Liliya Aburto APRN [address] [facility] [address] [place] [id number] PCP - General Family Medicine 01/08/19
--- OUTSIDE RECORDS SUMMARY | 2025-07-30 17:34 | XMS_ITS | Clinical Summary ---
Author Organization Healthcare Address [address] [place] [address] Care Team Providers Care Product Representative Name Role Phone Unavailable Primary Care Provider Unavailabl e Social History Tobacco Use Types Packs/Day Years Used Date Smoking Tobacco: Never Assessed Comments Unknown Sex and Gender Information Value Date Recorded Sex Assigned at Not on file Legal Sex Female 9:11 PM EDT Gender Identity Not on file Sexual Orientation Not on file Plan of Treatment Health Maintenance Due Date Last Done Comments [facility]-Depression Screening 1975 [facility]-/Child/Adol SDOH Screenings 1975 [facility]- SDOH Screenings 1993 [facility]-Adult SDOH Screenings 1993 [facility]-DTaP,Tdap,and Td Vaccine s (1 - Tdap) 1994 [facility]-Hepatitis B Vaccines (1 of 3 - 19+ 3-dose series) 1994 [facility]-Pap Smear 1996 [facility]-Cervical Cancer Screening 2005 [facility]-HPV/Cotest 2005 CT Colonography 2020 Colonoscopy 2020 FIT-DNA 2020 FIT 2020 FOBT 2020 Sigmoidoscopy 2020 [facility]-Colorectal Cancer Screening 2020 UGP-ACQIN-66 Vaccine (1 - 20 25-26 season) 2025 [facility]-Influenza Vaccine (#1) 2025 07/02/2019 [facility]-Zoster Vaccines (1 of 2) 2025 HPV Vaccines Aged Out No longer eligi ble based on patient's age to complete this topic [facility]-HIB Vaccines Aged Out No longer e ligible based on patient's age to complete this topic [facility]-Hepatitis A Vaccines Aged Out No longer eligible based on patient's age to complete this topic [facility]-IPV Vaccines Aged Out No longer e ligible based on patient's age to complete this topic [facility]-Pneumococcal Vaccine: Pediatrics (0 to 5 Years) and At-Risk Patients (6 to 49 Years) Aged Out No long er eligible based on patient's age to complete this topic [facility]-Rotavirus Vaccines Aged Out No lo nger eligible based on patient's age to complete this topic Insurance [facility] MEDICAID
--- OUTSIDE RECORDS SUMMARY | 2025-07-30 17:34 | XMS_ITS | Patient Health Record ---
Author Organization [facility] Address [address] [facility] [address] [place] [address] Care Team Providers Care Public Health Advisor Name Role Phone Natali Farnsworth Unavailable [phone] Allergies No Known Allergies Reason For Referral No Information Medications Medication SIG (Take, Route, Frequency, Duration) Notes Start Date End Date Status traZODone HCl Active Diflucan 150 MG Tablet 1 tablet Orally e very 72 hours; Duration: 4 day(s) 11/16/2021 Active Microgestin 09/29 1-20 MG-MCG Tablet 1 tablet Orally Once a day; Duration: 90 days Active Soliqua Active Lisinopril Active Meloxicam Active metFORMIN HCl ER Act milvia Problems Problem Type SNOMED Code ICD Code Onset Dates Problem Status W/U Status Risk Notes Problem Gynecological examination normal (008531535025577 ) Cervical smear, as part of routine gynecological examination (Z01.419) 09/17/19 Active confirmed Annual without abnormal findings Plan Of Treatment No Information Insurance Providers Payer Name Payer Address Payer Phone Subscriber Number Group Number Insured Name Patient Relationship to Insured Coverage Start Date Coverage End Date [facility] [address] [place] [phone] [id number] [facility] Aliya Osorio Self - patient is the insured Medical (General) History Medical History History ICD Code Anxiety Bipolar Disease Depression Diabetes Endometriosis Hypothyroidism Weight Disorder Surgical History Surgery Date(Month/Year) Caesarean sections x 3
[2025-07-30 18:03] LABS: Hematocrit 35.1 % (37.0-47.0); Hemoglobin 11.2 g/dL (12.2-16.2); Immature Granulocytes % 0 %; Mean Corpuscular HGB Conc 31.9 g/dL (31.8-35.4); Mean Corpuscular Hemoglobin 24.9 pg (27.0-31.2); Mean Corpuscular Volume 78.2 fl (81-99); Nucleated Red Blood Cells % 0 %; Platelet Count 208 K/mm3 (142-424); Red Blood Count 4.49 M/mm3 (4.20-5.40); Red Cell Distribution Width-SD 40.7 fL; White Blood Count 5.8 K/mm3 (4.8-10.8)
[2025-07-30 19:29] LABS: Alanine Aminotransferase 25 U/L (12-78); Albumin Level 4.5 g/dl (3.5-5.0); Albumin/Globulin Ratio 1.7 (1.1-1.8); Alkaline Phosphatase 142 U/L (38-126); Anion Gap 12.8 mEq/L (5-15); Aspartate Amino Transferase 40 U/L (14-36); Bilirubin,Total 0.3 mg/dl (0.2-1.3); Blood Urea Nitrogen 13 mg/dl (7-17); Calcium 9.1 mg/dl (8.4-10.2); Carbon Dioxide 25 mmol/L (22.0-30.0); Chloride 102 mmol/L (98-107); Cholesterol 123 mg/dl (140-200); Creatinine,Serum 0.80 mg/dl (0.52-1.04); Estimated Glomerular Filt Rate 76 ml/min (>60); GFR (African American) 92 ML/MIN (>60); Globulin 2.7 g/dL (1.3-3.2); Glucose 85 mg/dl (74-100); HDL Cholesterol 46 mg/dl (40-60); Potassium 3.8 mmoL/L (3.5-5.1); Sodium 136 mmol/L (136-145); Total Protein,Serum 7.2 g/dl (6.3-8.2); Triglycerides 79 mg/dl (30-150); Uric Acid 3.0 mg/dl (2.5-6.2)
[2025-07-30 19:46] LABS: 25-OH Vitamin D, Total 47.1 ng/mL (30-100)
[2025-07-30 20:00] LABS: Thyroid Stimulating Hormone 1.45 uIU/mL (0.465-4.68)
[2025-07-30 20:42] LABS: Hemoglobin A1C 5.9 % (4.0-6.0)
== END 2025-07-30 23:59 | disposition home or self-care (01) ==
LOC: LAB 17:30
PROVIDERS: PCP Internal Medicine Adolescent Medicine; Visit Provider Nurse Practitioner Family
DX: E55.9 Vitamin D deficiency, unspecified (principal); M25.561 Pain in right knee; M25.562 Pain in left knee; F33.1 Major depressive disorder, recurrent, moderate; E11.65 Type 2 diabetes mellitus with hyperglycemia; Z79.4 Long term (current) use of insulin
CPT/HCPCS: 36415; 80053; 80061; 82043; 82306; 82570; 83036; 84443; 84550; 85025; 85651

== ENCOUNTER 2025-07-30 17:54 | Outpatient (CLI) | payer OTHER, SELFPAY ==
--- NOTE | 2025-07-30 | XR_ITS ---
PROCEDURE INFORMATION: Exam: XR Right Knee Exam date and time: 07/30/2025 5:52 PM Age: 49 years old Clinical indication: Pain; Knee; Right TECHNIQUE: Imaging protocol: Radiologic exam of the right knee. Views: 3 views. COMPARISON: No relevant prior studies available. FINDINGS: Bones/joints: Mild tricompartmental degenerative spurring. Well corticated bony densities overlying the posterior joint space. No acute fracture identified. Soft tissues: Normal. IMPRESSION: 1. No acute abnormality. 2. Densit bony densities over the posterior joint space may reflect loose bodies. DJD.
--- NOTE | 2025-07-30 | XR_ITS ---
PROCEDURE INFORMATION: Exam: XR Left Knee Exam date and time: 07/30/2025 5:52 PM Age: 49 years old Clinical indication: Pain; Knee; Left TECHNIQUE: Imaging protocol: Radiologic exam of the left knee. Views: 3 views. COMPARISON: CR XR KNEE LT 3V 03/08/2023 6:51 PM FINDINGS: Bones/joints: Mild tricompartmental degenerative spurring. No acute fracture. Well corticated round bony density posteriorly. Soft tissues: Normal. IMPRESSION: 1. Mild DJD. 2. Well corticated bony density posteriorly that might reflect a intra articular loose body.
== END 2025-07-30 23:59 | disposition home or self-care (01) ==
LOC: RAD 17:55
PROVIDERS: PCP Internal Medicine Adolescent Medicine; Visit Provider Nurse Practitioner Family
DX: M17.11 Unilateral primary osteoarthritis, right knee (principal); M17.12 Unilateral primary osteoarthritis, left knee; R93.6 Abnormal findings on diagnostic imaging of limbs
CPT/HCPCS: 73562

== ENCOUNTER 2025-08-11 06:15 | Emergency (ER) | payer OTHER, SELFPAY ==
[2025-08-11 06:13] VITALS: BP 138/72; PULSE 84; RESP 18; TEMP 37.2; O2SAT 98; BMI 35.9
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
[2025-08-11 06:17] VITALS: BP 138/72; PULSE 84; RESP 18; TEMP 37.2; O2SAT 98
[2025-08-11] MEDS: ACETAMINOPHEN 500MG TAB 1000 MG PO (06:21)
[2025-08-11] MEDS: METHOCARBAMOL 500MG TABLET 500 MG PO (06:21)
[2025-08-11 06:30] VITALS: BP 145/76; PULSE 88; O2SAT 96
[2025-08-11 06:32] LABS: Hematocrit 35.3 % (37.0-47.0); Hemoglobin 11.0 g/dL (12.2-16.2); Immature Granulocytes % 0.4 %; Mean Corpuscular HGB Conc 31.2 g/dL (31.8-35.4); Mean Corpuscular Hemoglobin 24.1 pg (27.0-31.2); Mean Corpuscular Volume 77.4 fl (81-99); Nucleated Red Blood Cells % 0 %; Platelet Count 170 K/mm3 (142-424); Red Blood Count 4.56 M/mm3 (4.20-5.40); Red Cell Distribution Width-SD 40.8 fL; White Blood Count 6.8 K/mm3 (4.8-10.8)
[2025-08-11 06:39] LABS: Albumin Level 4.2 g/dl (3.5-5.0); Chloride 103 mmol/L (98-107); Potassium 4.3 mmoL/L (3.5-5.1); Sodium 141 mmol/L (136-145)
[2025-08-11 06:42] LABS: Alanine Aminotransferase 32 U/L (12-78); Albumin/Globulin Ratio 1.4 (1.1-1.8); Alkaline Phosphatase 119 U/L (38-126); Anion Gap 18.3 mEq/L (5-15); Aspartate Amino Transferase 30 U/L (14-36); Bilirubin,Total 0.4 mg/dl (0.2-1.3); Blood Urea Nitrogen 18 mg/dl (7-17); Calcium 8.3 mg/dl (8.4-10.2); Carbon Dioxide 24 mmol/L (22.0-30.0); Creatinine Clearance Estimated 153 mL/min (50-200); Creatinine,Serum 0.60 mg/dl (0.52-1.04); Estimated Glomerular Filt Rate 106 ml/min (>60); GFR (African American) 128 ML/MIN (>60); Globulin 3.1 g/dL (1.3-3.2); Glucose 132 mg/dl (74-100); Total Protein,Serum 7.3 g/dl (6.3-8.2)
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
[2025-08-11 06:56] LABS: HCG Qualitative, Serum Negative (Negative)
[2025-08-11 07:00] VITALS: BP 144/75; PULSE 84; O2SAT 96
[2025-08-11 07:46] LABS: Hepatitis C Ab Qual. W/ RFX NEGATIVE (Negative)
--- NOTE | 2025-08-11 08:56 | XR_ITS ---
FINAL REPORT CLINICAL HISTORY: trauma FINDINGS: LEFT KNEE 3 views of the left knee were obtained. There is no acute fracture or dislocation. There is mild degenerative joint disease. Visualized joint spaces are normally aligned. A small joint effusion is present. IMPRESSION: No acute bony abnormality. If pain persist, consider MRI for further evaluation. Reviewed, Interpreted and Dictated by Kamille Vilchis MD Transcribed by Allison Gardiner Authenticated and [facility]
--- NOTE | 2025-08-11 08:56 | XR_ITS ---
FINAL REPORT CLINICAL HISTORY: trauma FINDINGS: LEFT HIP 2 views of the left hip are obtained. There is no acute fracture or dislocation. Visualized joint spaces are normally aligned. There is no acute soft tissue abnormality. IMPRESSION: No acute bony abnormality. Reviewed, Interpreted and Dictated by Kamille Vilchis MD Transcribed by Allison Gardiner Authenticated and . [facility]
[2025-08-11 09:04] VITALS: BP 126/71; PULSE 69; O2SAT 99
[2025-08-11] MEDS: KETOROLAC 15MG/ML VIAL 15 MG IV (09:04)
[2025-08-11 10:46] VITALS: BP 150/80; PULSE 70; RESP 15; TEMP 36.8; O2SAT 99
== END 2025-08-11 10:51 | disposition home or self-care (01) ==
PROVIDERS: Emergency Medicine; Emergency Provider Emergency Medicine; PCP Internal Medicine Adolescent Medicine
DX: R07.9 Chest pain, unspecified (principal); M25.562 Pain in left knee; M54.50 Low back pain, unspecified; S30.11XA Contusion of abdominal wall, initial encounter; S00.531A Contusion of lip, initial encounter; V47.5XXA Car driver injured in collision with fixed or stationary object in traffic accident, initial encounter; W22.11XA Striking against or struck by driver side automobile airbag, initial encounter; Y92.410 Unspecified street and highway as the place of occurrence of the external cause; I10 Essential (primary) hypertension; K21.9 Gastro-esophageal reflux disease without esophagitis; E11.9 Type 2 diabetes mellitus without complications; E03.9 Hypothyroidism, unspecified; Z79.899 Other long term (current) drug therapy; Z79.890 Hormone replacement therapy; Z79.84 Long term (current) use of oral hypoglycemic drugs; Z79.85 Long-term (current) use of injectable non-insulin antidiabetic drugs
CPT/HCPCS: 70450; 71250; 72125; 72128; 72131; 73502; 73562; 74176; 80053; 84703; 85025; 86803; 87389; 96374; 99285; J1885

== ENCOUNTER 2025-08-18 12:19 | Outpatient (CLI) | payer OTHER, SELFPAY ==
--- NOTE | 2025-08-18 12:22 | MR_ITS ---
FINAL REPORT CLINICAL HISTORY: MEDIAL SIDED RIGHT KNEE PAIN COMPARISON: None FINDINGS: Multi planar MR imaging was performed of the right knee. The anterior and posterior cruciate ligaments are intact. There is abnormal signal of the insertion of the quadriceps tendon. The patellar tendon is intact. The medial and lateral menisci are intact without evidence of tear. The medial and lateral collateral ligaments appear intact. The medial and lateral retinacula appear intact. There are small osteochondral lesions involving the articular surface of the medial femoral condyle and the undersurface of the patella, particularly involving the medial articular facet and producing grade I-II chondromalacia. No evidence of soft tissue inflammatory reaction. IMPRESSION: Small osteochondral lesions involving the articular surface of the medial femoral condyle and the undersurface of the patella as described above, with grade I-II chondromalacia. Abnormal signal of the insertion of the quadriceps tendon, the patellar tendon is intact. Reviewed, Interpreted and Dictated by Slava Lopez MD Transcribed by Norma Paul Authenticated and [facility]
--- NOTE | 2025-08-18 12:23 | MR_ITS ---
FINAL REPORT CLINICAL HISTORY: PAIN IN LEFT KNEE SWELLING INSTABILITY COMPARISON: None FINDINGS: Multi planar MR imaging was performed of the left knee. The anterior and posterior cruciate ligaments are intact. The quadriceps and patellar tendons are intact. The medial and lateral menisci are intact without evidence of tear. The medial and lateral collateral ligaments appear intact. The medial and lateral retinacula appear intact. There is bone marrow edema in the patella, as well as multiple small osteochondral lesions underlying the lateral articular facet and the junction of the medial and lateral facets, consistent with grade II chondromalacia. A small joint effusion is present, and there is a round focus of abnormal signal posterior to the posterior cruciate ligament, that represents an intra-articular loose body. This is best seen on image #13 of series 5, and image 19 of series 10. A 6 cm popliteal cyst is present. 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 Small joint effusion and popliteal cyst. Reviewed, Interpreted and Dictated by Slava Lopez MD Transcribed by Norma Paul Authenticated and [facility]
--- NOTE | 2025-08-18 14:19 | MM_ITS ---
PROCEDURE INFORMATION: Exam: MG Bilateral Screening 3D Mammography Exam date and time: 08/18/2025 2:21 PM Age: 50 years old Clinical indication: Screening examination TECHNIQUE: Imaging protocol: Bilateral Screening tomosynthesis and 2D mammography including computer-aided detection (CAD) when performed. COMPARISON: No relevant prior studies available. FINDINGS: MAMMOGRAPHY: Breast composition: There are scattered areas of fibroglandular density. Mass: No suspicious masses. Architectural distortion: None. Calcifications: No suspicious calcifications. Asymmetric density: Questioned 1 cm asymmetry superior right breast middle to posterior depth possible correlate in the medial breast on CC view. Right breast questioned focal asymmetry.Recommend right breast diagnostic mammogram including spot compression views of the right breast in the CC and MLO projections, a full 90 degree lateral view, and right breast ultrasound for further evaluation. Skin thickening: None. Axillary adenopathy: None. IMPRESSION: No mammographic evidence of malignancy. Annual screening is recommended unless otherwise clinically indicated. ASSESSMENT: BI-RADS Category 0: Incomplete- Need Additional Imaging Evaluation.
== END 2025-08-18 23:59 | disposition home or self-care (01) ==
LOC: RAD 12:19
PROVIDERS: PCP Internal Medicine Adolescent Medicine; Visit Provider Nurse Practitioner Family
DX: Z12.31 Encounter for screening mammogram for malignant neoplasm of breast (principal); M94.261 Chondromalacia, right knee; M94.262 Chondromalacia, left knee; M71.22 Synovial cyst of popliteal space [Baker], left knee; M93.861 Other specified osteochondropathies, right lower leg; M23.41 Loose body in knee, right knee; M23.42 Loose body in knee, left knee; M17.11 Unilateral primary osteoarthritis, right knee; M17.12 Unilateral primary osteoarthritis, left knee; R92.8 Other abnormal and inconclusive findings on diagnostic imaging of breast; R92.323 Mammographic fibroglandular density, bilateral breasts
CPT/HCPCS: 73721; 77063; 77067

== ENCOUNTER 2025-08-28 16:58 | Outpatient (CLI) | payer OTHER, SELFPAY ==
--- OUTSIDE RECORDS SUMMARY | 2025-08-28 17:01 | XMS_ITS | Patient Health Record ---
Author Organization [facility] Address [address] [facility] [address] [place] [address] Care Team Providers Care Horse Trekking Guide Name Role Phone Natali Farnsworth Unavailable [phone] Allergies No Known Allergies Reason For Referral [...] Status Risk Notes Problem Gynecological examination normal ([id number] ) Cervical smear, as part of routine gynecological examination (Z01.419) 09/17/19 Active confirmed Annual without abnormal findings Plan Of Treatment No Information Insurance Providers Payer Name Payer Address Payer Phone Subscriber Number Group Number Insured Name Patient Relationship to Insured Coverage Start Date Coverage End Date [facility] [address] [place] [phone] [id number] [facility] Aliya Osorio Self - patient is the insured Medical (General) History Medical History History ICD Code Anxiety Bipolar Disease Depression Diabetes Endometriosis Hypothyroidism Weight Disorder Surgical History Surgery Date(Month/Year) Caesarean sections x 3
--- OUTSIDE RECORDS SUMMARY | 2025-08-28 17:02 | XMS_ITS | Encounter Summary ---
Author Organization Healthcare Address [address] [place] [address] Care Team Providers Care Graduate Assistant Name Role Phone Unavailable Primary Care Provider Unavailabl e Encounter Details Date Type Department Care Team (Latest Contact Info) Description 07/17/2022 Community Orders Community [facility] [address] [place] [address] Heather Day S, [employer] [address] [place] [id number] Diabetes mellitus without complication (CMS/HCC) (Primary Dx) [...]
--- OUTSIDE RECORDS SUMMARY | 2025-08-28 17:02 | XMS_ITS | Clinical Summary ---
Author Organization [facility] Address [address] [place] [address] Care Team Providers Care Foundation Relations Manager Name Role Phone Liliya Aburto IKE Primary [...] e 06/21/2023 Family and Community Support Answer Oscra e Recorded Help with Day-to-Day Activities Not [...] Date Last Done Comments Annual Gynecologic Pelvic and Breast Exam 1975 TDAP/TD VACCINES (1 - Tdap) 1994 MAMMOGRAM 2015 ANNUAL PHYSICAL 01/16/2019 HEPATITIS C SCREENING 01/16/2019 COLOGUARD 2020 COLON CANCER SCREENING 5 YEAR SIGMOIDOSCOPY 2020 COLONOSCOPY [address] CANCER SCREENING 2020 CT COLONOGRAPHY 2020 FECAL OCCULT BLOOD TEST 2020 FIT Testing (1 year) 2020 INFLUENZA VACCINE 04/10/2025 Pneumococcal Vaccine 50+ (1 of 1 - PCV) 2025 ZOSTER VACCINE (1 of 2) 2025 HEMOGLOBIN A1C Discontinued 01/08/2019 Procedures Procedure Name Priority Date/Time Associated Diagnosis Comments HEMOGLOBIN A1C Routine 01/08/2019 5:21 PM EDT from Last 3 Months or Most Recently Relevant to Health Maintenance Results * (ABNORMAL) Hemoglobin A1c (01/08/2019 5:21 PM EDT) Hemoglobin A1C 9.80(H) 4.80 - 5.60 % 01/08/2019 6:23 PM EDT [facility] Blood Venipuncture / Unknown 01/08/2019 5:21 PM EDT 01/08/2019 5:45 PM EDT Narrative [facility] - 01/08/2019 6:23 PM EDT Hemoglobin A1C Ranges: Increased Risk for Diabetes 5.7% to 6.4% Diabetes >= 6.5% Diabetic Goal < 7.0% us Natali Farnsworth MD LAB BLOOD ORDERABLES Final R esult [facility]
[address] [place] [address], from Last 3 Months or Most Recently Relevant to Health Maintenance Additional Health Concerns Infection Onset Date Last Indicated MRSA 01/09/2019 01/09/2019 Insurance [facility] PPO Advance Directives * CPR (Attempt to Resuscitate) (Latest Code Status on File) Date Activated Date Inactivated Comments 01/08/2019 4:03 PM 01/15/2019 7:06 PM Question Answer Comments Code Status (Patient has no pulse and is not breathing): CPR (Attempt to Resuscitate) Medical Interventions (Patie nt has pulse or is breathing): Full Care Teams Foundation Relations Manager Relationship Specialty Start Date End Date Liliya Aburto APRN [address] [facility] [address] [place] [address] PCP - General Family Medicine 01/08/19
--- OUTSIDE RECORDS SUMMARY | 2025-08-28 17:02 | XMS_ITS | Clinical Summary ---
Author Organization Healthcare Address [address] [place] [address] Care Team Providers Care Manager Of Creative Services Name Role Phone Unavailable Primary Care Provider [...] 2020 Sigmoidoscopy 2020 [facility]-Colorectal Cancer Screening 2020 [id number] Vaccine (1 - 20 25-26 season) 2025 [facility]-Influenza Vaccine (#1) 2025 07/02/2019 [facility]-Pneumococcal Vaccine: 50 + Years (1 of 1 - PCV) 2025 [facility]-Zoster Vaccines (1 of 2) 2025 HPV Vaccines (No Doses Required) Completed [facility]-HIB Vaccines Aged Out No longer e [...] patient's age to complete this topic Insurance [facility] MEDICAID
[2025-08-28 17:12] LABS: Hematocrit 29.4 % (37.0-47.0); Hemoglobin 9.5 g/dL (12.2-16.2); Immature Granulocytes % 0.8 %; Mean Corpuscular HGB Conc 32.3 g/dL (31.8-35.4); Mean Corpuscular Hemoglobin 24.1 pg (27.0-31.2); Mean Corpuscular Volume 74.4 fl (81-99); Nucleated Red Blood Cells % 0 %; Platelet Count 224 K/mm3 (142-424); Red Blood Count 3.95 M/mm3 (4.20-5.40); Red Cell Distribution Width-SD 42.4 fL; White Blood Count 7.6 K/mm3 (4.8-10.8)
[2025-08-28 17:26] LABS: Albumin Level 3.9 g/dl (3.5-5.0); Chloride 109 mmol/L (98-107); Potassium 4.5 mmoL/L (3.5-5.1); Sodium 136 mmol/L (136-145)
[2025-08-28 17:28] LABS: Blood Urea Nitrogen 41 mg/dl (7-17); Creatinine,Serum 1.10 mg/dl (0.52-1.04); Estimated Glomerular Filt Rate 53 ml/min (>60); GFR (African American) 64 ML/MIN (>60)
[2025-08-28 17:29] LABS: Alanine Aminotransferase 13 U/L (12-78); Albumin/Globulin Ratio 1.4 (1.1-1.8); Alkaline Phosphatase 139 U/L (38-126); Anion Gap 11.5 mEq/L (5-15); Aspartate Amino Transferase 24 U/L (14-36); Bilirubin,Total 0.2 mg/dl (0.2-1.3); Calcium 8.3 mg/dl (8.4-10.2); Carbon Dioxide 20 mmol/L (22.0-30.0); Globulin 2.7 g/dL (1.3-3.2); Glucose 97 mg/dl (74-100); Total Protein,Serum 6.6 g/dl (6.3-8.2)
[2025-08-28 17:47] LABS: Magnesium 1.0 mg/dl (1.6-2.3)
== END 2025-08-28 23:59 | disposition home or self-care (01) ==
LOC: LAB 16:59
PROVIDERS: PCP Internal Medicine Adolescent Medicine; Visit Provider Nurse Practitioner Family
DX: R12 Heartburn (principal); R00.2 Palpitations
CPT/HCPCS: 36415; 80053; 83735; 85025

== ENCOUNTER 2025-08-28 18:25 | Emergency (ER) | payer OTHER, SELFPAY ==
[2025-08-28 18:44] VITALS: BP 131/80; PULSE 89; RESP 18; TEMP 37.2; O2SAT 100; BMI 34.9
--- OUTSIDE RECORDS SUMMARY | 2025-08-28 19:06 | XMS_ITS | Encounter Summary ---
Author Organization Healthcare Address [address] [place] [address] Care Team Providers Care Infant And Toddler Teacher Name Role Phone Unavailable Primary Care Provider Unavailabl e Encounter Details Date Type Department Care Team (Latest Contact Info) Description 07/17/2022 Community Orders Community Practice [address] [place] [address] Heather Day S, EYELETTER [address] [place] [id number] Diabetes mellitus without complication (CMS/HCC) (Primary Dx) [...]
--- OUTSIDE RECORDS SUMMARY | 2025-08-28 19:06 | XMS_ITS | Clinical Summary ---
Author Organization [facility] Address [address] [place] [address] Care Team Providers Care Tank Hoop Bender Name Role Phone Liliya Aburto IKE Primary [...] - 5.60 % 01/08/2019 6:23 PM EDT [facility] Blood Venipuncture / Unknown 01/08/2019 5:21 PM EDT 01/08/2019 5:45 PM EDT Narrative [facility] - 01/08/2019 6:23 PM EDT Hemoglobin A1C Ranges: Increased Risk for Diabetes 5.7% to 6.4% Diabetes >= 6.5% Diabetic Goal < 7.0% us Natali Fanrsworth MD LAB BLOOD ORDERABLES Final R esult [facility]
[address] [place] [address], from Last 3 Months or Most Recently Relevant to Health Maintenance Additional Health Concerns Infection Onset Date Last Indicated MRSA 01/09/2019 01/09/2019 Insurance [facility] PPO Advance Directives * CPR (Attempt to Resuscitate) (Latest Code Status on File) Date Activated Date Inactivated Comments 01/08/2019 4:03 PM 01/15/2019 7:06 PM Question Answer Comments Code Status (Patient has no pulse and is not breathing): CPR (Attempt to Resuscitate) Medical Interventions (Patie nt has pulse or is breathing): Full Care Teams Tank Hoop Bender Relationship Specialty Start Date End Date Liliya Aburto APRN [address] [facility] [address] [place] [id number] PCP - General Family Medicine 01/08/19
--- OUTSIDE RECORDS SUMMARY | 2025-08-28 19:06 | XMS_ITS | Clinical Summary ---
Author Organization Healthcare Address [address] [place] [address] Care Team Providers Care Chocolate Production Machine Operator Name Role Phone Unavailable Primary Care Provider [...] 2020 Sigmoidoscopy 2020 [facility]-Colorectal Cancer Screening 2020 [id number] Vaccine (1 - 20 25-26 season) 2025 [...] patient's age to complete this topic Insurance [facility] MEDICAID
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
[2025-08-28 19:16] VITALS: BP 135/76; PULSE 59; RESP 18; O2SAT 59
[2025-08-28 19:33] LABS: Hematocrit 30.4 % (37.0-47.0); Hemoglobin 9.9 g/dL (12.2-16.2); Immature Granulocytes % 0.7 %; Mean Corpuscular HGB Conc 32.6 g/dL (31.8-35.4); Mean Corpuscular Hemoglobin 24.3 pg (27.0-31.2); Mean Corpuscular Volume 74.5 fl (81-99); Nucleated Red Blood Cells % 0 %; Platelet Count 217 K/mm3 (142-424); Red Blood Count 4.08 M/mm3 (4.20-5.40); Red Cell Distribution Width-SD 42.4 fL; White Blood Count 7.6 K/mm3 (4.8-10.8)
[2025-08-28] MEDS: LACTATED RINGERS 1000ML 1,000 ML 999 ML IV (19:36)
[2025-08-28] MEDS: MAGNESIUM SULFATE IN WATER 2 GM/50 ML PIGGYBACK IV ×2 (19:37)
[2025-08-28 19:44] LABS: Alanine Aminotransferase 16 U/L (12-78); Albumin Level 4.5 g/dl (3.5-5.0); Albumin/Globulin Ratio 1.4 (1.1-1.8); Alkaline Phosphatase 145 U/L (38-126); Anion Gap 12.6 mEq/L (5-15); Aspartate Amino Transferase 28 U/L (14-36); Bilirubin,Total 0.3 mg/dl (0.2-1.3); Blood Urea Nitrogen 40 mg/dl (7-17); Calcium 8.1 mg/dl (8.4-10.2); Carbon Dioxide 22 mmol/L (22.0-30.0); Chloride 108 mmol/L (98-107); Creatinine Clearance Estimated 89 mL/min (50-200); Creatinine,Serum 1.00 mg/dl (0.52-1.04); Estimated Glomerular Filt Rate 59 ml/min (>60); GFR (African American) 71 ML/MIN (>60); Globulin 3.2 g/dL (1.3-3.2); Glucose 118 mg/dl (74-100); Potassium 4.6 mmoL/L (3.5-5.1); Sodium 138 mmol/L (136-145); Total Protein,Serum 7.7 g/dl (6.3-8.2)
[2025-08-28 19:47] LABS: Coronavirus 19, PCR Not Detected (NotDetected); Influenza A, PCR Not Detected (NotDetected); Influenza B, PCR Not Detected (NotDetected)
[2025-08-28 19:57] LABS: Troponin I < 0.01 ng/ml (0.00-0.034)
--- NOTE | 2025-08-28 19:58 | ECG_ITS ---
APPROVED REPORT Exam: Resting ECG HR:75 bpm ECG Measurements Heart Rate 75 AXES ID [id number] P 44 QRSd 95 QRS 82 QT 377 T 57 QTc 405 Conclusion SINUS RHYTHM NORMAL ECG UNCONFIRMED REPORT Normal sinus rhythm. No STEMI Electronically signed by : EMBER ARRIAGA, 08/28/2025 21:35:30
[2025-08-28 20:13] LABS: Free T4 (Free Thyroxine) 1.18 ng/dl (0.78-2.19)
[2025-08-28 20:14] LABS: Thyroid Stimulating Hormone 2.64 uIU/mL (0.465-4.68)
[2025-08-28 20:35] VITALS: BP 121/63; PULSE 75; RESP 18; TEMP 37; O2SAT 100
== END 2025-08-28 20:59 | disposition home or self-care (01) ==
PROVIDERS: Emergency Provider Student in an Organized Health Care Education/Training Program; PCP Internal Medicine Adolescent Medicine
DX: N17.9 Acute kidney failure, unspecified (principal); E83.42 Hypomagnesemia; E11.9 Type 2 diabetes mellitus without complications; I10 Essential (primary) hypertension; R00.2 Palpitations; Z79.84 Long term (current) use of oral hypoglycemic drugs; Z79.899 Other long term (current) drug therapy
CPT/HCPCS: 80053; 84439; 84443; 84484; 85025; 87636; 93005; 96365; 99284; 99285; J3475; J7120